=== PATIENT | female | born 2000 | race Hispanic/Latino ===

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

== ENCOUNTER 2018-02-18 21:58 | Emergency (ER) | payer SELFPAY ==
[~2018-02-18] VITALS: Ht 154.9 cm; Wt 99.8 kg
--- OUTSIDE RECORDS SUMMARY | 2018-02-18 22:03 | XMS REPORT | Summary of Care ---
Author Author [facility] Organization [facility] Address Unknown Phone Unavailable Encounter JACINTO Ervin(LUDA) [id number] Date(s): 12/26/15 - 12/26/15 [facility] [address] [place] [address]- Discharge Diagnosis: Lightheadedness Discharge Disposition: Home or Self Care Attending Physician: Tre Taylor DO Vital Signs Most recent to 1 2 oldest [Reference Range]: Height 154.94 cm (12/26/15 3:28 PM) Temperature Oral 98.1 DegF 98.1 DegF [96.8-99.7 DegF] (12/26/15 6:26 PM) (12/26/15 3:28 PM) Blood Pressure 128/73 mmHg 126/82 mmHg [90-138/45-84 mmHg] (12/26/15 6:26 PM) (12/26/15 3:28 PM) Respiratory Rate 20 BRMIN 18 BRMIN [14-20 BRMIN] (12/26/15 6:26 PM) (12/26/15 3:28 PM) Peripheral Pulse 100 bpm 117 bpm Rate [55-90 bpm] *HI* *HI* (12/26/15 6:26 PM) (12/26/15 3:28 PM) Weight 97.727 kg (12/26/15 3:28 PM) Body Mass Index 40.71 m2 (12/26/15 3:28 PM) Problem List Condition Effective Dates Status Health Status Informant Kidney Resolved stone(Confirmed) (Confirmed) 12/18/15 Active Allergies, Adverse Reactions, Alerts Substance Reaction Severity Status NKDA Active Medications Macrobid 100 mg oral capsule 100 mg=1 cap, PO, BID, X 7 day, # 14 cap, 0 Refill(s) Start Date: 12/26/15 Stop Date: 01/02/16 Status: Ordered Phenergan 12.5 mg oral tablet 12.5 mg=1 tab, PO, Q6H, PRN Nausea & Vomiting, X 5 day, # 20 tab, 0 Refill(s) Start Date: 12/26/15 Stop Date: 12/31/15 Status: Ordered Sodium Chloride 0.9% (Bolus) IV 500 mL, 500 ml/hr, Infuse Over: 1 hr, Route: IV, 500, Drug form: INJ, ONCE, Prio rity: STAT, Dosing Weight 97.727 kg, Start date: 12/26/15 15:31:00 CDT, Duration : 1 doses or times, Stop date: 12/26/15 15:31:00 CDT Start Date: 12/26/15 Stop Date: 12/26/15 Status: Completed Results ELECTROLYTES Most recent to 1 oldest [Reference Range]: Sodium Lvl [135-145 139 mEq/L mEq/L] (12/26/15 3:35 PM) Potassium Lvl 3.2 mEq/L [3.5-5.1 mEq/L] *LOW* (12/26/15 3:35 PM) Chloride Lvl [95-109 106 mEq/L mEq/L] (12/26/15 3:35 PM) CO2 [24-32 mEq/L] 26 mEq/L (12/26/15 3:35 PM) AGAP [10.0-20.0 10.2 mEq/L mEq/L] (12/26/15 3:35 PM) CHEM PANEL Most recent to 1 oldest [Reference Range]: Creatinine Lvl 0.57 mg/dL [0.50-1.40 mg/dL] (12/26/15 3:35 PM) eGFR 111 mL/min/1.73m2 1 *NA* (12/26/15 3:35 PM) BUN [7-22 mg/dL] 7 mg/dL (12/26/15 3:35 PM) B/C Ratio [6-25] 12 (12/26/15 3:35 PM) Glucose Lvl [70-99 111 mg/dL mg/dL] *HI* (12/26/15 3:35 PM) Total Protein 6.9 g/dL [6.4-8.4 g/dL] (12/26/15 3:35 PM) Albumin Lvl [3.5-5.0 2.5 g/dL g/dL] *LOW* (12/26/15 3:35 PM) Globulin [2.7-4.2 4.4 g/dL g/dL] *HI* (12/26/15 3:35 PM) A/G Ratio [0.7-1.6] 0.6 *LOW* (12/26/15 3:35 PM) Calcium Lvl 8.8 mg/dL [8.5-10.5 mg/dL] (12/26/15 3:35 PM) ALT [0-65 unit/L] 18 unit/L (12/26/15 3:35 PM) AST [0-37 unit/L] 10 unit/L (12/26/15 3:35 PM) Alk Phos [39-136 110 unit/L unit/L] (12/26/15 3:35 PM) Bili Total [0.2-1.3 0.1 mg/dL mg/dL] *LOW* (12/26/15 3:35 PM) 1Result Comment: The eGFR is calculated using the modified Chairez equation 0.413 x Height (cm) /Serum Creatinine (mg/dL). URINE CHEM Most recent to 1 oldest [Reference Range]: U Preg [Negative] Positive *ABN* (12/26/15 5:01 PM) URINE AND STOOL Most recent to 1 oldest [Reference Range]: UA Turbidity [Clear] Clear (12/26/15 5:01 PM) UA Color Ltyellow *NA* (12/26/15 5:01 PM) UA pH [5.0-8.0] 7.0 (12/26/15 5:01 PM) UA Spec Grav 1.014 [<=1.030] (12/26/15 5:01 PM) UA Glucose [Negative Negative mg/dL mg/dL] *NA* (12/26/15 5:01 PM) UA Blood [Negative] Negative (12/26/15 5:01 PM) UA Ketones [Negative Negative mg/dL mg/dL] *NA* (12/26/15 5:01 PM) UA Protein [Negative Negative mg/dL mg/dL] (12/26/15 5:01 PM) UA Urobilinogen <=1.0 mg/dL [0.1-1.0 mg/dL] *NA* (12/26/15 5:01 PM) UA Bili [Negative] Negative *NA* (12/26/15 5:01 PM) UA Leuk Est Large [Negative] *ABN* (12/26/15 5:01 PM) UA Nitrite Negative [Negative] (12/26/15 5:01 PM) UA WBC [0-5 /HPF] 4 /HPF (12/26/15 5:01 PM) UA RBC [0-2 /HPF] 1 /HPF (12/26/15 5:01 PM) UA Bacteria [None Occasional /HPF Seen /HPF] *NA* (12/26/15 5:01 PM) UA Sq Epi [Few /LPF] Occasional /LPF *NA* (12/26/15 5:01 PM) UA Mucus [None Seen Few /LPF /LPF] *NA* (12/26/15 5:01 PM) UA Trans Epi [<=0 2 /LPF /LPF] *HI* (12/26/15 5:01 PM) HEMATOLOGY Most recent to 1 oldest [Reference Range]: WBC [3.7-10.4 K/CMM] 6.7 K/CMM (12/26/15 3:35 PM) RBC [4.20-5.40 3.87 M/CMM M/CMM] *LOW* (12/26/15 3:35 PM) Hgb [12.0-16.0 g/dL] 11.2 g/dL *LOW* (12/26/15 3:35 PM) Hct [36.0-48.0 %] 33.5 % *LOW* (12/26/15 3:35 PM) MCV [80.0-98.0 fL] 86.7 fL (12/26/15 3:35 PM) MCH [27.0-31.0 pg] 29.0 pg (12/26/15 3:35 PM) MCHC [32.0-36.0 33.5 g/dL g/dL] (12/26/15 3:35 PM) RDW [11.5-14.5 %] 14.8 % *HI* (12/26/15 3:35 PM) Platelet [133-450 155 K/CMM K/CMM] (12/26/15 3:35 PM) MPV [7.4-10.4 fL] 8.0 fL (12/26/15 3:35 PM) Segs [45.0-75.0 %] 76.8 % *HI* (12/26/15 3:35 PM) Lymphocytes 16.4 % [20.0-40.0 %] *LOW* (12/26/15 3:35 PM) Monocytes [2.0-12.0 5.2 % %] (12/26/15 3:35 PM) Eosinophils [0.0-4.0 1.4 % %] (12/26/15 3:35 PM) Basophils [0.0-1.0 0.2 % %] (12/26/15 3:35 PM) Segs-Bands # 5.2 K/CMM [1.5-8.1 K/CMM] (12/26/15 3:35 PM) Lymphocytes # 1.1 K/CMM [1.0-5.5 K/CMM] (12/26/15 3:35 PM) Monocytes # [0.0-0.8 0.4 K/CMM K/CMM] (12/26/15 3:35 PM) Eosinophils # 0.1 K/CMM [0.0-0.5 K/CMM] (12/26/15 3:35 PM) Immunizations No data available for this section Procedures No data available for this section Social History Social History Type Response Smoking Status Never smoker; Exposure to Tobacco Smoke None; Cigarette Smoking Last 365 Days No; Reg Smoking Cessation Counseling No Assessment and Plan No data available for this section
--- OUTSIDE RECORDS SUMMARY | 2018-02-18 22:03 | XMS REPORT | Summary of Care ---
Author Author [facility] Organization [facility] Address Unknown Phone Unavailable Encounter JACINTO Ervin(LUDA) [id number] Date(s): 03/07/16 - 03/07/16 [facility] [address] [place] [address]- Discharge Diagnosis: Discharge Diagnosis: Acute lower UTI Discharge Disposition: Home or Self Care Attending Physician: Pat Zimmerman MD Vital Signs Most recent to 1 2 oldest [Reference Range]: Height 154.94 cm 154.94 cm (03/07/16 7:10 PM) (03/07/16 7:09 PM) Temperature Oral 98.4 DegF [96.4-99.1 DegF] (03/07/16 7:10 PM) Blood Pressure 137/73 mmHg [90-140/60-90 mmHg] (03/07/16 7:10 PM) Respiratory Rate 20 BRMIN [14-20 BRMIN] (03/07/16 7:10 PM) Peripheral Pulse 81 bpm Rate [60-100 bpm] (03/07/16 7:10 PM) Weight 107.727 kg 107.727 kg (03/07/16 7:10 PM) (03/07/16 7:09 PM) Body Mass Index 44.87 m2 44.87 m2 (03/07/16 7:10 PM) (03/07/16 7:09 PM) Problem List Condition Effective Dates Status Health Status Informant Kidney Resolved stone(Confirmed) (Confirmed) 12/18/15 Active Allergies, Adverse Reactions, Alerts Substance Reaction Severity Status NKDA Active Medications Macrobid 100 mg oral capsule 100 mg=1 cap, PO, BID, X 7 day, # 14 cap, 0 Refill(s) Start Date: 03/07/16 Stop Date: 03/14/16 Status: Ordered Rocephin 1 gm, Route: IM, Drug form: PDR/INJ, ONCE, Dosing Weight 107.727, kg, Priority: STAT, Start date: 03/07/16 20:45:00 GAS TENDER, Stop date: 03/07/16 20:45:00 GAS TENDER Notes: (Same As: Rocephin).Use with 100 mL NS and infuse over 30 min MEDICA TION WASTE Product Size: 1000 mgProduct Wasted: ___ mg Start Date: 03/07/16 Stop Date: 03/07/16 Status: Completed Results URINE AND STOOL Most recent to 1 oldest [Reference Range]: UA Turbidity [Clear] Slight *ABN* (03/07/16 7:18 PM) UA Color Ltyellow *NA* (03/07/16 7:18 PM) UA pH [5.0-8.0] 7.0 (03/07/16 7:18 PM) UA Spec Grav 1.012 [<=1.030] (03/07/16 7:18 PM) UA Glucose [Negative Negative mg/dL mg/dL] *NA* (03/07/16 7:18 PM) UA Blood [Negative] Moderate *ABN* (03/07/16 7:18 PM) UA Ketones [Negative Negative mg/dL mg/dL] *NA* (03/07/16 7:18 PM) UA Protein [Negative Negative mg/dL mg/dL] (03/07/16 7:18 PM) UA Urobilinogen <=1.0 mg/dL [0.1-1.0 mg/dL] *NA* (03/07/16 7:18 PM) UA Bili [Negative] Negative *NA* (03/07/16 7:18 PM) UA Leuk Est Large [Negative] *ABN* (03/07/16 7:18 PM) UA Nitrite Negative [Negative] (03/07/16 7:18 PM) UA WBC [0-5 /HPF] 16 /HPF *HI* (03/07/16 7:18 PM) UA RBC [0-2 /HPF] 19 /HPF *HI* (03/07/16 7:18 PM) UA Bacteria [None Occasional /HPF Seen /HPF] *NA* (03/07/16 7:18 PM) UA Sq Epi [Few /LPF] Few /LPF *NA* (03/07/16 7:18 PM) UA Amorph Nanci [None Occasional /HPF Seen /HPF] *NA* (03/07/16 7:18 PM) UA Mucus [None Seen Few /LPF /LPF] *NA* (03/07/16 7:18 PM) Immunizations No data available for this section Procedures Procedure Date Related Diagnosis Body Site Stent placement1 2012 Lithotripsy 1kidney stent placed for stones Social History Social History Type Response Substance Abuse 1 Alcohol 2 Smoking Status Never smoker; Exposure to Tobacco Smoke None; Cigarette Smoking Last 365 Days No; Reg Smoking Cessation Counseling No 1denies 2denies Assessment and Plan No data available for this section
--- OUTSIDE RECORDS SUMMARY | 2018-02-18 22:03 | XMS REPORT | Continuity of Care Document ---
Author Author Kavon rachel [facility] Interface Address Unknown Phone Unavailable Problems Problem Status Onset Date Classification Date Reported Comments Source Discharge Diagnosis: 03/07/2016 03/10/2016 [facility] Discharge Diagnosis: Acute lower UTI 03/07/2016 03/10/2016 [facility] ABDOMINAL PAIN Active 03/07/2016 [facility] Discharge Diagnosis: Labor, false , antepartum 02/13/2016 02/16/2016 [facility] Discharge Diagnosis: Acute vaginitis 02/13/2016 02/16/2016 [facility] BACK PAIN Active 02/13/2016 [facility] Discharge Diagnosis: Lightheadedness 12/26/2015 12/29/2015 [facility] S.O.B Active 12/26/2015 [facility] Discharge Diagnosis: Acute cystitis during in second trimester 12/18/2015 12/21/2015 [facility] Discharge Diagnosis: 26 weeks gestation of 12/18/2015 12/21/2015 [facility] Resolved 12/18/2015 Problem 03/20/2016 [facility] PRESSURE Active 12/18/2015 [facility] Active 06/05/2015 [facility] INDUCTION Active 06/05/2015 [facility] SHORTNESS OF BREATH Active 05/08/2013 [facility] Kidney stone Resolved Problem 03/20/2016 [facility] FAILED INDUCTION OF LABOR, UNSPECIFIED Active [facility] Medications Medication Details Route Status Patient Instructions Ordering Provider Order Date Source Acetaminophen 300 MG / Codeine Phosphate 30 MG Oral Tablet [Tylenol with Codeine #3] 1 tab, PO, Q4H, PRN Pain, X 7 day, # 42 tab, 0 Refill(s) Active 03/16/2016 [facility] Multivitamins oral tablet 1 tab, Route: PO, Drug Form: TAB, Dosing Weight 109.091, kg, Daily, Start date: 03/16/16 9:00:00 [employer] SERVICES TECH, Duration: 30 day, Stop date: 04/14/16 9:00:00 BUSINESS SERVICES TECH No Longer Active 03/16/2016 [facility] Unasyn 1.5 gm, 1 ea, Route: IVPB, ABXQ8H, Dosing Weight 109.091, kg, Start date: 03/16/16 1:00:00 BUSINESS SERVICES TECH, Duration: 2 doses or times, Stop date: 03/16/16 9:00:00 CSTNotes: Dosing based on Ampicillin component (Same as: Unasyn) Inactive 03/16/2016 [facility] Ibuprofen 600 mg, 1 tab, Route: PO, Drug form: TAB, Q6H, Dosing Weight 109.091, kg, Start date: 03/16/16 0:00:00 BUSINESS SERVICES TECH, Duration: 30 day, Stop date: 04/14/16 18:00:00 CSTNotes: (Same as: Motrin) "Do Not Crush" Take with food. No Longer Active 03/16/2016 [facility] Tylenol 1,000 mg, 100 mL, Route: IVPB, Drug form: INJ, Q6H, Dosing Weight 109.091, kg, Start date: 03/16/16 0:00:00 BUSINESS SERVICES TECH, Duration: 30 day, Stop date: 04/14/16 18:00:00 CSTNotes: Infuse over 15 minutes Do not e xceed 4gm/day of acetaminophen MEDICATION WASTE Product Size: 1000 mg Product Wasted: ___ mg Inactive 03/16/2016 [facility] Lactated Ringers 1,000 mL 1,000 mL, Rate: 100 ml/hr, Infuse over: 10 hr, Route: IV, Dosing Weight 109.091 kg, Total Volume: 1,000, Start date: 03/15/16 22:58:00 BUSINESS SERVICES TECH, Duration: 30 day, Stop date: 04/14/16 22:57:00 BUSINESS SERVICES TECH No Longer Active 03/16/2016 [facility] Oxytocin 0.06 UNT/ML Injectable Solution 30 unit, 500 mL, Rate: 42 ml/hr, Infuse over: 11.9 hr, Dosing Weight 109.091, kg, Route: IV, Total Volume: 500 mL, Start date: 03/15/16 22:58:00 BUSINESS SERVICES TECH, Duration: 1 doses or times, Stop date: 03/16/16 10:51:00 BUSINESS SERVICES TECH, Replace Every: 11.9 hrNotes: (Same as: OXYTOCIN-D5LR) No Longer Active 03/16/2016 [facility] lanolin topical cream 1 appl, Route: TOP, PRN, Drug form: CRM, PRN Other -See Comment, Start date: 03/15/16 22:58:00 BUSINESS SERVICES TECH, Duration: 30 day, Stop date: 04/14/16 22:57:00 BUSINESS SERVICES TECH No Longer Active 03/16/2016 [facility] Bisacodyl 10 mg, 1 supp, Route: VA, Drug form: SUPP, PRN, Dosing Weight 109.091, kg, PRN Other -See Comment, Start date: 03/15/16 22:58:00 BUSINESS SERVICES TECH, Duration: 30 day, Stop date: 04/14/16 22:57:00 CSTNotes: (Same As: Dulcolax, Bisco-Lax) No Longer Active 03/16/2016 [facility] Acetaminophen 325 MG / Hydrocodone Bitartrate 5 MG Oral Tablet 1 tab, Route: PO, Drug Form: TAB, Dosing Weight 109.091, kg, Q4H, PRN Pain Score 4-6, Start date: 03/15/16 22:58:00 BUSINESS SERVICES TECH, Duration: 30 day, Stop date: 04/14/16 22:57:00 CSTNotes: (Same as: [place] 325/5) Do not exceed 4gm/day of acetaminophen. No Longer Active 03/16/2016 [facility] Acetaminophen 325 MG / Hydrocodone Bitartrate 10 MG Oral Tablet 1 tab, Route: PO, Drug Form: TAB, Dosing Weight 109.091, kg, Q4H, PRN Pain Score 7-10, Start date: 03/15/16 22:58:00 BUSINESS SERVICES TECH, Duration: 30 day, Stop date: 04/14/16 22:57:00 CSTNotes: Do not exceed 4gm/day of acetaminophen. (Same as: [place] 325/10) No Longer Active 03/16/2016 [facility] zolpidem 5 mg, 1 tab, Route: PO, Drug form: TAB, Bedtime, Dosing Weight 109.091, kg, PRN Insomnia, Start date: 03/15/16 22:58:00 BUSINESS SERVICES TECH, Duration: 30 day, Stop date: 04/14/16 22:57:00 CSTNotes: (Same As: Ambien) No Longer Active 03/16/2016 [facility] Benzocaine / Menthol 1 lozenge, Route: PO, Drug Form: ROEL, Dosing Weight 109.091, kg, PRN, PRN Sore Throat, Start date: 03/15/16 22:58:00 BUSINESS SERVICES TECH, Duration: 30 day, Stop date: 04/14/16 22:57:00 CSTNotes: Same as: Cepacol No Longer Active 03/16/2016 [facility] Acetaminophen 650 mg, 2 tab, Route: PO, Drug form: TAB, Q4H, Dosing Weight 109.091, kg, PRN Other -See Comment, Start date: 03/15/16 22:58:00 BUSINESS SERVICES TECH, Duration: 30 day, Stop date: 04/14/16 22:57:00 CSTNotes: Do not ex ceed 4 gm/day. (Same as: Tylenol) No Longer Active 03/16/2016 [facility] Simethicone 160 mg, 2 tab, Route: PO, Drug form: CHE[place]AB, Q8H, Dosing Weight 109.091, kg, PRN Gas, Start date: 03/15/16 22:58:00 BUSINESS SERVICES TECH, Duration: 30 day, Stop date: 04/14/16 22:57:00 CSTNotes: (Same as: Mylicon) No Longer Active 03/16/2016 [facility] Naloxone 0.4 mg, 1 mL, Route: IVP, Drug form: INJ, ONCALL, Dosing Weight 109.091, kg, Start date: 03/15/16 20:00:00 BUSINESS SERVICES TECH, Duration: 24 hr, Stop date: 03/16/16 19:59:00 CSTNotes: Same as Narcan No Longer Active 03/16/2016 [facility] Hydrocodone Bitartrate 7.5 MG / Ibuprofen 200 MG Oral Tablet [Vicoprofen] 1 tab, Route: PO, Drug Form: TAB, Dosing Weight 109.091, kg, Q6H, PRN Pain Score 7-10, Start date: 03/15/16 19:14:00 BUSINESS SERVICES TECH, Duration: 24 hr, Stop date: 03/16/16 19:13:00 CSTNotes: (Same as: Vicoprofen) No Longer Active 03/16/2016 [facility] Ondansetron 4 mg, 2 mL, Route: IVP, Drug form: INJ, Q6H, Dosing Weight 109.091, kg, PRN Nausea & Vomiting, Start date: 03/15/16 19:14:00 BUSINESS SERVICES TECH, Duration: 24 hr, Stop date: 03/16/16 19:13:00 CSTNotes: (Same as: Zofran) MEDICATION WASTE Product Size: 4 mg Product Wasted: ___ mg No Longer Active 03/16/2016 [facility] Hydromorphone 0.3 mg, 0.3 mL, Route: IVP, Drug form: INJ, Q4H, Dosing Weight 109.091, kg, PRN Pain Score 7-10, Start date: 03/15/16 19:14:00 BUSINESS SERVICES TECH, Duration: 30 day, Stop date: 04/14/16 19:13:00 BUSINESS SERVICES TECH No Longer Active 03/16/2016 [facility] Naloxone 0.1 mg, 0.25 mL, Route: SUB-Q, Drug form: INJ, Q6H, Dosing Weight 109.091, kg, PRN Itching, Start date: 03/15/16 19:14:00 BUSINESS SERVICES TECH, Duration: 24 hr, Stop date: 03/16/16 19:13:00 CSTNotes: Same as Narcan No Longer Active 03/16/2016 [facility] Diphenhydramine 12.5 mg, 0.5 tab, Route: PO, Drug form: TAB, Q6H, Dosing Weight 109.091, kg, PRN Itching, Start date: 03/15/16 19:14:00 BUSINESS SERVICES TECH, Duration: 30 day, Stop date: 04/14/16 19:13:00 BUSINESS SERVICES TECH No Longer Active 03/16/2016 [facility] Promethazine 6.25 mg, 0.25 mL, Route: IVPB, Q6H, Dosing Weight 109.091, kg, PRN Nausea & Vomiting, Start date: 03/15/16 19:14:00 BUSINESS SERVICES TECH, Duration: 24 hr, Stop date: 03/16/16 19:13:00 CSTNotes: Do not give IV push. (Same as: Phenergan) No Longer Active 03/16/2016 [facility] Meperidine 12.5 mg, 0.25 mL, Route: IVP, Drug form: INJ, ONCE, Dosing Weight 109.091, kg, Start date: 03/15/16 19:14:00 BUSINESS SERVICES TECH, Stop date: 03/15/16 19:14:00 CSTNotes: (Same as: Demerol) "Use Precaution in Elderly, Seizure disorders, and Renal impairment" No Longer Active 03/16/2016 [facility] Nalbuphine 2 mg, 0.2 mL, Route: IVP, Drug form: INJ, Q2H, Dosing Weight 109.091, kg, PRN Itching, Start date: 03/15/16 19:14:00 BUSINESS SERVICES TECH, Duration: 5 doses or times, Stop date: Limited # of timesNotes: (Same As: Smita somers) No Longer Active 03/16/2016 [facility] Oxycodone Hydrochloride 1 MG/ML Oral Solution 5 mg, 5 mL, Route: NG, Drug form: LIQ, Q4H, Dosing Weight 109.091, kg, PRN Pain Score 4-6, Start date: 03/15/16 19:14:00 BUSINESS SERVICES TECH, Stop date: 04/14/16 19:13:00 CSTNotes: (Same as: 'Roxicodone) No Longer Active 03/16/2016 [facility] Oxycodone Hydrochloride 5 MG Oral Tablet 5 mg, 1 tab, Route: PO, Drug form: TAB, Q4H, Dosing Weight 109.091, kg, PRN Pain Score 4-6, Start date: 03/15/16 19:14:00 BUSINESS SERVICES TECH, Duration: 30 day, Stop date: 04/14/16 19:13:00 CSTNotes: (Same as: Roxicodone) No Longer Active 03/16/2016 [facility] Acetaminophen 1,000 mg, 2 tab, Route: PO, Drug form: TAB, Q6Hnow, Dosing Weight 109.091, kg, Priority: NOW, Start date: 03/15/16 19:14:00 BUSINESS SERVICES TECH, Duration: 24 hr, Stop date: 03/16/16 13:14:00 CSTNotes: Max acetaminophen 4000 mg/day (4 gm/day). (Same as: Tylenol Extra Strength) Inactive 03/16/2016 [facility] Ketorolac 30 mg, 1 mL, Route: IVP, Drug form: INJ, Q6H, Dosing Weight 109.091, kg, PRN Pain Score 4-6, Start date: 03/15/16 19:14:00 BUSINESS SERVICES TECH, Duration: 24 hr, Stop date: 03/16/16 19:13:00 CSTNotes: (Same as:Toradol) IV bolus must be given >15 seconds. Give IM administration slowly and deeply into the muscle. Not for use > 4 days MEDICATION WASTE Product Size: 30 mg Product Wasted: ___ mg No Longer Active 03/16/2016 [facility] ondansetron (ANES) Route: IV, Drug form: INJ, ONCE, Stop date: 03/15/16 17:45:00 BUSINESS SERVICES TECH Inactive 03/15/2016 [facility] hydromorphone (ANES) Route: EPIDURAL, Drug form: INJ, ONCE, Stop date: 03/15/16 17:45:00 BUSINESS SERVICES TECH Inactive 03/15/2016 [facility] ceFAZolin (ANES) Route: IV, Drug form: INJ, ONCE, Stop date: 03/15/16 17:36:00 BUSINESS SERVICES TECH Inactive 03/15/2016 [facility] oxytocin (ANES) (ANES) Route: IV, Drug form: SOLN, Start date: 03/15/16 17:12:00 BUSINESS SERVICES TECH, Stop date: 03/15/16 18:12:00 BUSINESS SERVICES TECH Inactive 03/15/2016 [facility] LR 1000 mL INJ (ANES) Route: IV, Total Volume: 1,000, Start date: 03/15/16 16:52:00 BUSINESS SERVICES TECH, Stop date: 03/15/16 17:52:00 BUSINESS SERVICES TECH Inactive 03/15/2016 [facility] Cefazolin 3 gm, Route: IVPB, ONCE, Dosing Weight 109.091, kg, Start date: 03/15/16 16:19:00 BUSINESS SERVICES TECH, Duration: 1 doses or times, Stop date: 03/15/16 16:19:00 BUSINESS SERVICES TECH, 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; For patients > 100 kgNotes: (Same As: AncYevgeniy tsaizochanell) MEDICATION WASTE Product Size: 1000 mg Product Wasted: ___ mg Inactive 03/15/2016 [facility] Morphine 2 mg, 1 mL, Route: IVP, Drug form: INJ, Q2H, Dosing Weight 109.091, kg, PRN Pain Score 7-10, Start date: 03/15/16 16:18:00 BUSINESS SERVICES TECH, Duration: 30 day, Stop date: 04/14/16 16:17:00 CSTNotes: (Same as:MORPhine Sulfate) No Longer Active 03/15/2016 [facility] Ondansetron 4 mg, Route: IVP, Q8H, Dosing Weight 109.091, kg, PRN Nausea & Vomiting, Start date: 03/15/16 16:18:00 BUSINESS SERVICES TECH, Duration: 30 day, Stop date: 04/14/16 16:17:00 BUSINESS SERVICES TECH Inactive 03/15/2016 [facility] Metoclopramide 10 mg, Route: IVP, Drug form: INJ, Q6H, Dosing Weight 109.091, kg, PRN Nausea & Vomiting, Start date: 03/15/16 16:18:00 BUSINESS SERVICES TECH, Duration: 30 day, Stop date: 04/14/16 16:17:00 BUSINESS SERVICES TECH Inactive 03/15/2016 [facility] Promethazine 12.5 mg, 0.5 mL, Route: IM, Drug form: INJ, Q4H, Dosing Weight 109.091, kg, PRN Nausea & Vomiting, Start date: 03/15/16 16:18:00 BUSINESS SERVICES TECH, Duration: 30 day, Stop date: 04/14/16 16:17:00 CSTNotes: Do not g nayan IV push. (Same as: Phenergan) No Longer Active 03/15/2016 [facility] Misoprostol 1,000 microgram, 5 tab, Route: VA, Drug form: TAB, ONCALL, Dosing Weight 109.091, kg, Start date: 03/15/16 4:00:00 BUSINESS SERVICES TECH, Duration: 1 doses or timesNotes: (Same as:Cytotec) Take with food Inactive 03/15/2016 [facility] Methylergonovine 0.2 mg, 1 mL, Route: IM, Drug form: INJ, ONCALL, Dosing Weight 109.091, kg, Start date: 03/15/16 4:00:00 BUSINESS SERVICES TECH, Duration: 30 day, Stop date: 04/14/16 3:59:00 CSTNotes: (Same as:Methergine) Inactive 03/15/2016 [facility] Carboprost 250 microgram, 1 mL, Route: IM, Drug form: INJ, ONCALL, Dosing Weight 109.091, kg, Start date: 03/15/16 4:00:00 BUSINESS SERVICES TECH, Duration: 30 day, Stop date: 04/14/16 3:59:00 CSTNotes: (Same As: Hemabate) Inactive 03/15/2016 [facility] Citric Acid / sodium citrate 30 mL, Route: PO, Drug Form: SOLN, Dosing Weight 109.091, kg, ONCALL, Start date: 03/15/16 4:00:00 BUSINESS SERVICES TECH, Duration: 30 day, Stop date: 04/14/16 3:59:00 CSTNotes: (Same As: Bicitra) Inactive 03/15/2016 [facility] Famotidine 20 mg, 2 mL, Route: IVP, Drug form: INJ, ONCALL, Dosing Weight 109.091, kg, Start date: 03/15/16 4:00:00 BUSINESS SERVICES TECH, Duration: 30 day, Stop date: 04/14/16 3:59:00 CSTNotes: (Same as: Pepcid) Can be dilute in 5-10cc NS IVP: Slow IV push over at least 2 minutes. 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 OPERATOR AREA (Same As: Brethine) Inactive 03/15/2016 [facility] Lidocaine Hydrochloride 10 MG/ML Injectable Solution 200 mg, 20 mL, Route: PERCUT, Drug Form: INJ, Dosing Weight 109.091, kg, PRN, PRN Other -See Comment, Start date: 03/15/16 3:41:00 BUSINESS SERVICES TECH, Duration: 1 doses or times, Stop date: Limited # of timesNotes: (Same as: Xylocaine) Inactive 03/15/2016 [facility] Ibuprofen 600 mg, 1 tab, Route: PO, Drug form: TAB, Q6H, Dosing Weight 109.091, kg, PRN Other -See Comment, Start date: 03/15/16 3:41:00 BUSINESS SERVICES TECH, Duration: 30 day, Stop date: 04/14/16 3:40:00 CSTNotes: (Same as: Motrin) "Do Not Crush" Take with food. Inactive 03/15/2016 [facility] Acetaminophen 325 MG / Hydrocodone Bitartrate 5 MG Oral Tablet 1 tab, Route: PO, Drug Form: TAB, Dosing Weight 109.091, kg, Q4H, PRN Pain Score 4-6, Start date: 03/15/16 3:41:00 BUSINESS SERVICES TECH, Duration: 30 day, Stop date: 04/14/16 3:40:00 CSTNotes: (Same as: [place] 325/5) Do not exceed 4gm/day of acetaminophen. Inactive 03/15/2016 [facility] Metoclopramide 10 mg, 2 mL, Route: IVP, Drug form: INJ, Q6H, Dosing Weight 109.091, kg, PRN Nausea & Vomiting, Start date: 03/15/16 3:41:00 BUSINESS SERVICES TECH, Duration: 30 day, Stop date: 04/14/16 3:40:00 CSTNotes: (Same as: Reglan) Inactive 03/15/2016 [facility] Ondansetron 4 mg, 2 mL, Route: IVP, Drug form: INJ, Q8H, Dosing Weight 109.091, kg, PRN Nausea & Vomiting, Start date: 03/15/16 3:41:00 BUSINESS SERVICES TECH, Duration: 30 day, Stop date: 04/14/16 3:40:00 CSTNotes: (Same as: Zofran) MEDICATION WASTE Product Size: 4 mg Product Wasted: ___ mg Inactive 03/15/2016 [facility] Oxytocin 0.06 UNT/ML Injectable Solution 30 unit, 500 mL, Rate: 42 ml/hr, Infuse over: 11.9 hr, Dosing Weight 109.091, kg, Route: IV, Total Volume: 500 mL, Start date: 03/15/16 3:41:00 BUSINESS SERVICES TECH, Duration: 2 day, Stop date: 03/17/16 3:40:00 BUSINESS SERVICES TECH, Replace Every: 11.9 hrNotes: (Same as: OXYTOCIN- D5LR) Inactive 03/15/2016 [facility] Calcium Chloride 0.0014 MEQ/ML / Potassium Chloride 0.004 MEQ/ML / Sodium Chloride 0.103 MEQ/ML / Sodium Lactate 0.028 MEQ/ML Injectable Solution 1,000 mL, 1,000 ml/hr, Infuse Over: 1 hr, Route: IV, 1,000, Drug form: INJ, ONCE, Dosing Weight 109.091 kg, Start date: 03/15/16 3:41:00 BUSINESS SERVICES TECH, Stop date: 03/15/16 3:41:00 BUSINESS SERVICES TECH, Bolus for regional anesthesia per unit protocol Inactive 03/15/2016 [facility] Lactated Ringers 1,000 mL 1,000 mL, Rate: 125 ml/hr, Infuse over: 8 hr, Route: IV, Dosing Weight 109.091 kg, Total Volume: 1,000, Start date: 03/15/16 3:41:00 BUSINESS SERVICES TECH, Duration: 30 day, Stop date: 04/14/16 3:40:00 BUSINESS SERVICES TECH Inactive 03/15/2016 [facility] Nitrofurantoin 100 MG Oral Capsule [Macrobid] 100 mg=1 cap, PO, BID, X 7 day, # 14 cap, 0 Refill(s) Active 03/08/2016 [facility] Rocephin 1 gm, Route: IM, Drug form: PDR/INJ, ONCE, Dosing Weight 107.727, kg, Priority: STAT, Start date: 03/07/16 20:45:00 BUSINESS SERVICES TECH, Stop date: 03/07/16 20:45:00 CSTNotes: (Same As: Rocephin). Use with 100 mL NS and infuse over 30 min MEDICATION WASTE Product Size: 1000 mg Product Wasted: ___ mg Inactive 03/08/2016 [facility] Metronidazole 0.0075 MG/MG Vaginal Gel [MetroGel] 1 appl, VAG, Bedtime, X 5 day, # 1 ea, 0 Refill(s) Active 02/14/2016 [facility] Lactated Ringers 1,000 mL 1,000 mL, Rate: 125 ml/hr, Infuse over: 8 hr, Route: IV, Dosing Weight 104.091 kg, Total Volume: 1,000, Start date: 02/13/16 20:10:00 CDT, Duration: 30 day, Stop date: 03/14/16 20:09:00 BUSINESS SERVICES TECH No Longer Active 02/14/2016 [facility] Calcium Chloride 0.0014 MEQ/ML / Potassium Chloride 0.004 MEQ/ML / Sodium Chloride 0.103 MEQ/ML / Sodium Lactate 0.028 MEQ/ML Injectable Solution 1,000 mL, 1,000 ml/hr, Infuse Over: 1 hr, Route: IV, ONCE, Priority: STAT, Dosing Weight 104.091 kg, Start date: 02/13/16 20:10:00 CDT, Duration: 1 doses or times, Stop date: 02/13/16 20:10:00 CDT Inactive 02/14/2016 [facility] Phenergan 12.5 mg oral tablet 12.5 mg=1 tab, PO, Q6H, PRN Nausea & Vomiting, X 5 day, # 20 tab, 0 Refill(s) Active 12/26/2015 [facility] Nitrofurantoin 100 MG Oral Capsule [Macrobid] 100 mg=1 cap, PO, BID, X 7 day, # 14 cap, 0 Refill(s) Active 12/26/2015 [facility] Sodium Chloride 0.154 MEQ/ML Injectable Solution 500 mL, 500 ml/hr, Infuse Over: 1 hr, Route: IV, 500, Drug form: INJ, ONCE, Priority: STAT, Dosing Weight 97.727 kg, Start date: 12/26/15 15:31:00 CDT, Duration: 1 doses or times, Stop date: 12/26/15 15:31:00 CDT Inactive 12/26/2015 [facility] Nitrofurantoin 100 MG Oral Capsule [Macrobid] 100 mg=1 cap, PO, BID, X 7 day, # 14 cap, 0 Refill(s) Active 12/18/2015 [facility] 1 Plus 1 oral tablet 1 tab, PO, Daily, # 30 tab, 0 Refill(s) Active 12/18/2015 [facility] famotidine 20 mg oral tablet 20 mg=1 tab, PO, BID, # 30 tab, 0 Refill(s) Active 05/11/2013 [facility] Carafate 1 g/10 mL oral suspension 1 gm=10 ml, PO, QID- Before Meals, # 400 ml, 0 Refill(s) Active [facility] 05/11/2013 [facility] famotidine 20 mg, Route: PO, ONCE, Dosing Weight 90.909, kg, Priority: STAT, Start date: 05/11/13 2:40:00, Stop date: 05/11/13 2:40:00 Inactive [facility] 05/11/2013 [facility] Maalox Advanced Regular Strength SUSP 30 mL, Route: PO, Drug Form: SUSP, Dosing Weight 90.909, kg, ONCE, STAT, Start date: 05/11/13 2:40:00, Stop date: 05/11/13 2:40:00 Inactive [facility] 05/11/2013 [facility] morphine Sulfate 4 mg, Route: IVP, Drug form: INJ, ONCE, Dosing Weight 90.909, kg, Priority: STAT, Start date: 05/11/13 1:41:00, Stop date: 05/11/13 1:41:00 Inactive [facility] 05/11/2013 [facility] famotidine 20 mg, 2 mL, Route: IVP, Drug form: INJ, ONCE, Dosing Weight 90.909, kg, Priority: STAT, Start date: 05/11/13 0:15:00, Stop date: 05/11/13 0:15:00(Same as: Pepcid) Can be dilute in 5-10cc NS IVP: Slow IV push over at least 2 minutes. Inactive 05/11/2013 [facility] ondansetron 4 mg, 2 mL, Route: IVP, Drug form: INJ, ONCE, Dosing Weight 90.909, kg, Priority: STAT, Start date: 05/11/13 0:15:00, Stop date: 05/11/13 0:15:00(Same as: Zofran) Inactive [facility] 05/11/2013 [facility] Saline Flush 0.9% 5 mL, Route: IVP, Drug Form: INJ, Dosing Weight 90.909, kg, PRN, PRN Line Flush, Start date: 05/11/13 0:15:00, Duration: 24 hr, Stop date: 05/12/13 0:14:00(Same as: BD Posiflush) Inactive [facility] 05/11/2013 [facility] Sodium Chloride 0.9% (Bolus) IV 1,000 mL 1,000 mL, Rate: 1,000 ml/hr, Infuse over: 1 hr, Route: IV, Dosing Weight 90.909 kg, Total Volume: 1,000, Priority: STAT, Start date: 05/11/13 0:15:00, Duration: 1 doses or times, Stop date: 05/11/13 1:14:00 Inactive [facility] 05/11/2013 [facility] Allergies, Adverse Reactions, Alerts Substance Category Reaction Severity Reaction type Status Date Reported Comments Source Immunizations Immunization Date Given Site Status Last Updated Comments Source diphtheria/pertussis, acel/tetanus adult 03/16/2016 Not Given [facility] Results Order Name Results Value Reference Range Date Interpretation Comments Source HEMATOLOGY RBC 3.50 M/CMM 4.20 - 5.40 03/17/2016 [facility] HEMATOLOGY Hgb 9.8 g/dL 12.0 - 16.0 03/17/2016 [facility] HEMATOLOGY MPV 8.3 fL 7.4 - 10.4 03/17/2016 [facility] Platelet 155 K/CMM 133 - 450 03/17/2016 [facility] RDW 14.5 % 11.5 - 14.5 03/17/2016 [facility] Hct 29.6 % 36.0 - 48.0 03/17/2016 [facility] WBC 8.8 K/CMM 3.7 - 10.4 03/17/2016 [facility] MCHC 33.1 g/dL 32.0 - 36.0 03/17/2016 [facility] MCV 84.5 fL 80.0 - 98.0 03/17/2016 [facility] MCH 28.0 pg 27.0 - 31.0 03/17/2016 [facility] Segs 74.3 % 45.0 - 75.0 03/17/2016 [facility] Monocytes 5.9 % 2.0 - 12.0 03/17/2016 [facility] Basophils 0.3 % 0.0 - 1.0 03/17/2016 [facility] Segs-Bands # 6.6 K/CMM 1.5 - 8.1 03/17/2016 [facility] Eosinophils 1.2 % 0.0 - 4.0 03/17/2016 [facility] Lymphocytes # 1.6 K/CMM 1.0 - 5.5 03/17/2016 [facility] Lymphocytes 18.3 % 20.0 - 40.0 03/17/2016 [facility] Monocytes # 0.5 K/CMM 0.0 - 0.8 03/17/2016 [facility] Eosinophils # 0.1 K/CMM 0.0 - 0.5 03/17/2016 [facility] HEMATOLOGY MCV 85.0 fL 80.0 - 98.0 03/16/2016 [facility] HEMATOLOGY Hct 26.0 % 36.0 - 48.0 03/16/2016 [facility] MCH 27.8 pg 27.0 - 31.0 03/16/2016 [facility] RDW 14.6 % 11.5 - 14.5 03/16/2016 [facility] MCHC 32.7 g/dL 32.0 - 36.0 03/16/2016 [facility] HEMATOLOGY MPV 8.9 fL 7.4 - 10.4 03/16/2016 [facility] WBC 6.6 K/CMM 3.7 - 10.4 03/16/2016 [facility] Hgb 8.5 g/dL 12.0 - 16.0 03/16/2016 [facility] RBC 3.06 M/CMM 4.20 - 5.40 03/16/2016 [facility] Platelet 90 K/CMM 133 - 450 03/16/2016 [facility] Monocytes # 0.4 K/CMM 0.0 - 0.8 03/16/2016 [facility] HEMATOLOGY Eosinophils # 0.1 K/CMM 0.0 - 0.5 03/16/2016 [facility] HEMATOLOGY Segs 76.9 % 45.0 - 75.0 03/16/2016 [facility] HEMATOLOGY Lymphocytes 15.9 % 20.0 - 40.0 03/16/2016 [facility] Monocytes 6.2 % 2.0 - 12.0 03/16/2016 [facility] HEMATOLOGY Eosinophils 0.8 % 0.0 - 4.0 03/16/2016 [facility] HEMATOLOGY Segs-Bands # 5.1 K/CMM 1.5 - 8.1 03/16/2016 [facility] Basophils 0.2 % 0.0 - 1.0 03/16/2016 [facility] Lymphocytes # 1.0 K/CMM 1.0 - 5.5 03/16/2016 [facility] RBC Morph Normal (03/16/16 7:51 AM) 03/16/2016 [facility] HEMATOLOGY Plt Morph Normal (03/16/16 7:51 AM) 03/16/2016 [facility] BLOOD BANK RESULTS ABO/Rh A POS 03/15/2016 [facility] BLOOD BANK RESULTS Antibody Scrn Negative (03/15/16 4:42 AM) 03/15/2016 [facility] BLOOD BANK RESULTS Rhig Reqd See Note 1 (03/15/16 4:13 AM) 03/15/2016 Result Comment: 03/15/2016 12:07 [id number] This patient is not a candidate for Rh(O)D immune globulin. 03/15/2016 12:07 tb [facility] HEMATOLOGY Hgb 10.7 g/dL 12.0 - 16.0 03/15/2016 [facility] HEMATOLOGY Hct 32.7 % 36.0 - 48.0 03/15/2016 [facility] HEMATOLOGY MCV 84.4 fL 80.0 - 98.0 03/15/2016 [facility] WBC 8.2 K/CMM 3.7 - 10.4 03/15/2016 [facility] RBC 3.87 M/CMM 4.20 - 5.40 03/15/2016 [facility] RDW 14.6 % 11.5 - 14.5 03/15/2016 [facility] MPV 8.6 fL 7.4 - 10.4 03/15/2016 [facility] Platelet 141 K/CMM 133 - 450 03/15/2016 [facility] MCH 27.7 pg 27.0 - 31.0 03/15/2016 [facility] MCHC 32.9 g/dL 32.0 - 36.0 03/15/2016 [facility] Monocytes # 0.4 K/CMM 0.0 - 0.8 03/15/2016 [facility] Eosinophils # 0.1 K/CMM 0.0 - 0.5 03/15/2016 [facility] Monocytes 5.2 % 2.0 - 12.0 03/15/2016 [facility] Lymphocytes 24.5 % 20.0 - 40.0 03/15/2016 [facility] Eosinophils 1.8 % 0.0 - 4.0 03/15/2016 [facility] Segs 67.9 % 45.0 - 75.0 03/15/2016 [facility] Basophils 0.6 % 0.0 - 1.0 03/15/2016 [facility] Lymphocytes # 2.0 K/CMM 1.0 - 5.5 03/15/2016 [facility] HEMATOLOGY Segs-Bands # 5.6 K/CMM 1.5 - 8.1 03/15/2016 [facility] IMMUNOLOGY Hep Bs Ag Negative *NA* (03/15/16 4:13 AM) Negative 03/15/2016 [facility] IMMUNOLOGY HIV. Negative *NA* (03/15/16 4:13 AM) Negative 03/15/2016 [facility] IMMUNOLOGY Treponemal Scr Non Reactive *NA* (03/15/16 4:13 AM) Non Reactive 03/15/2016 [facility] URINE AND STOOL UA WBC 16 /HPF 0 - 5 03/08/2016 [facility] URINE AND STOOL UA RBC 19 /HPF 0 - 2 03/08/2016 [facility] URINE AND STOOL UA Sq Epi Few /LPF Few /LPF 03/08/2016 [facility] URINE AND STOOL UA Urobilinogen <=1.0 mg/dL 0.1 - 1.0 03/08/2016 [facility] URINE AND STOOL UA Bacteria Occasional /HPF None Seen /HPF 03/08/2016 [facility] URINE AND STOOL UA Mucus Few /LPF None Seen /LPF 03/08/2016 [facility] URINE AND STOOL UA Amorph Nanci Occasional /HPF None Seen /HPF 03/08/2016 [facility] URINE AND STOOL UA Color Ltyellow 03/08/2016 [facility] URINE AND STOOL UA Bili Negative *NA* (03/07/16 7:18 PM) Negative 03/08/2016 [facility] URINE AND STOOL UA Ketones Negative mg/dL Negative mg/dL 03/08/2016 [facility] URINE AND STOOL UA Leuk Est Large *ABN* (03/07/16 7:18 PM) Negative 03/08/2016 [facility] URINE AND STOOL UA Blood Moderate *ABN* (03/07/16 7:18 PM) Negative 03/08/2016 [facility] URINE AND STOOL UA Nitrite Negative (03/07/16 7:18 PM) Negative 03/08/2016 [facility] URINE AND STOOL UA Turbidity Slight *ABN* (03/07/16 7:18 PM) Clear 03/08/2016 [facility] URINE AND STOOL UA Spec Grav 1.012 <=1.030 03/08/2016 [facility] URINE AND STOOL UA pH 7.0 5.0 - 8.0 03/08/2016 [facility] URINE AND STOOL UA Protein Negative mg/dL Negative mg/dL 03/08/2016 [facility] URINE AND STOOL UA Glucose Negative mg/dL Negative mg/dL 03/08/2016 [facility] URINE AND STOOL UA Urobilinogen <=1.0 mg/dL 0.1 - 1.0 02/14/2016 [facility] URINE AND STOOL UA Color Ltyellow 02/14/2016 [facility] URINE AND STOOL UA Bacteria Occasional /HPF None Seen /HPF 02/14/2016 [facility] URINE AND STOOL UA Mucus Few /LPF None Seen /LPF 02/14/2016 [facility] URINE AND STOOL UA RBC 2 /HPF 0 - 2 02/14/2016 [facility] URINE AND STOOL UA Amorph Nanci Occasional /HPF None Seen /HPF 02/14/2016 [facility] URINE AND STOOL UA Renal Epi 5 /LPF <=0 /LPF 02/14/2016 [facility] URINE AND STOOL UA Protein Negative mg/dL Negative mg/dL 02/14/2016 [facility] URINE AND STOOL UA pH 7.0 5.0 - 8.0 02/14/2016 [facility] URINE AND STOOL UA Ketones Negative mg/dL Negative mg/dL 02/14/2016 [facility] URINE AND STOOL UA Glucose Negative mg/dL Negative mg/dL 02/14/2016 [facility] URINE AND STOOL UA Nitrite Negative (02/13/16 8:35 PM) Negative 02/14/2016 [facility] URINE AND STOOL UA Blood Negative (02/13/16 8:35 PM) Negative 02/14/2016 [facility] URINE AND STOOL UA Bili Negative *NA* (02/13/16 8:35 PM) Negative 02/14/2016 [facility] URINE AND STOOL UA WBC 4 /HPF 0 - 5 02/14/2016 [facility] URINE AND STOOL UA Sq Epi Few /LPF Few /LPF 02/14/2016 [facility] URINE AND STOOL UA Leuk Est Small *ABN* (02/13/16 8:35 PM) Negative 02/14/2016 [facility] URINE AND STOOL UA Spec Grav 1.014 <=1.030 02/14/2016 [facility] URINE AND STOOL UA Turbidity Slight *ABN* (02/13/16 8:35 PM) Clear 02/14/2016 [facility] URINE AND STOOL UA Urobilinogen <=1.0 mg/dL 0.1 - 1.0 12/26/2015 [facility] URINE AND STOOL UA Color Ltyellow 12/26/2015 [facility] URINE AND STOOL UA Ketones Negative mg/dL Negative mg/dL 12/26/2015 [facility] URINE AND STOOL UA Trans Epi 2 /LPF <=0 /LPF 12/26/2015 [facility] URINE AND STOOL UA Protein Negative mg/dL Negative mg/dL 12/26/2015 [facility] URINE AND STOOL UA pH 7.0 5.0 - 8.0 12/26/2015 [facility] URINE AND STOOL UA Spec Grav 1.014 <=1.030 12/26/2015 [facility] URINE AND STOOL UA Turbidity Clear (12/26/15 5:01 PM) Clear 12/26/2015 [facility] URINE AND STOOL UA Glucose Negative mg/dL Negative mg/dL 12/26/2015 [facility] URINE AND STOOL UA Leuk Est Large *ABN* (12/26/15 5:01 PM) Negative 12/26/2015 [facility] URINE AND STOOL UA Nitrite Negative (12/26/15 5:01 PM) Negative 12/26/2015 [facility] URINE AND STOOL UA Blood Negative (12/26/15 5:01 PM) Negative 12/26/2015 [facility] URINE AND STOOL UA Bili Negative *NA* (12/26/15 5:01 PM) Negative 12/26/2015 [facility] URINE AND STOOL UA Mucus Few /LPF None Seen /LPF 12/26/2015 [facility] URINE AND STOOL UA Bacteria Occasional /HPF None Seen /HPF 12/26/2015 [facility] URINE AND STOOL UA RBC 1 /HPF 0 - 2 12/26/2015 [facility] URINE AND STOOL UA WBC 4 /HPF 0 - 5 12/26/2015 [facility] URINE AND STOOL UA Sq Epi Occasional /LPF Few /LPF 12/26/2015 [facility] URINE CHEM U Preg Positive *ABN* (12/26/15 5:01 PM) Negative 12/26/2015 [facility] CHEM PANEL eGFR 111 mL/min/1.73m2 12/26/2015 Result Comment: The eGFR is calculated using the modified Chairez equation 0.413 x Height (cm) /Serum Creatinine (mg/dL). [facility] CHEM PANEL Chloride Lvl 106 meq/L 95 - 109 12/26/2015 [facility] CHEM PANEL Potassium Lvl 3.2 meq/L 3.5 - 5.1 12/26/2015 [facility] CHEM PANEL Sodium Lvl 139 meq/L 135 - 145 12/26/2015 [facility] CHEM PANEL Creatinine Lvl 0.57 mg/dL 0.50 - 1.40 12/26/2015 [facility] CHEM PANEL BUN 7 mg/dL 7 - 22 12/26/2015 [facility] CHEM PANEL Bili Total 0.1 mg/dL 0.2 - 1.3 12/26/2015 [facility] CHEM PANEL Alk Phos 110 unit/L 39 - 136 12/26/2015 [facility] CHEM PANEL AST 10 unit/L 0 - 37 12/26/2015 [facility] CHEM PANEL ALT 18 unit/L 0 - 65 12/26/2015 [facility] CHEM PANEL Albumin Lvl 2.5 g/dL 3.5 - 5.0 12/26/2015 [facility] CHEM PANEL Total Protein 6.9 g/dL 6.4 - 8.4 12/26/2015 [facility] CHEM PANEL Calcium Lvl 8.8 mg/dL 8.5 - 10.5 12/26/2015 [facility] CHEM PANEL CO2 26 meq/L 24 - 32 12/26/2015 [facility] CHEM PANEL Glucose Lvl 111 mg/dL 70 - 99 12/26/2015 [facility] CHEM PANEL A/G Ratio 0.6 0.7 - 1.6 12/26/2015 [facility] CHEM PANEL Globulin 4.4 g/dL 2.7 - 4.2 12/26/2015 [facility] CHEM PANEL B/C Ratio 12 6 - 25 12/26/2015 [facility] CHEM PANEL AGAP 10.2 meq/L 10.0 - 20.0 12/26/2015 [facility] HEMATOLOGY MCHC 33.5 g/dL 32.0 - 36.0 12/26/2015 [facility] HEMATOLOGY MCH 29.0 pg 27.0 - 31.0 12/26/2015 [facility] HEMATOLOGY Platelet 155 K/CMM 133 - 450 12/26/2015 [facility] HEMATOLOGY RDW 14.8 % 11.5 - 14.5 12/26/2015 [facility] HEMATOLOGY MPV 8.0 fL 7.4 - 10.4 12/26/2015 [facility] HEMATOLOGY MCV 86.7 fL 80.0 - 98.0 12/26/2015 [facility] HEMATOLOGY Hct 33.5 % 36.0 - 48.0 12/26/2015 [facility] HEMATOLOGY WBC 6.7 K/CMM 3.7 - 10.4 12/26/2015 [facility] HEMATOLOGY Hgb 11.2 g/dL 12.0 - 16.0 12/26/2015 [facility] HEMATOLOGY RBC 3.87 M/CMM 4.20 - 5.40 12/26/2015 [facility] HEMATOLOGY Eosinophils # 0.1 K/CMM 0.0 - 0.5 12/26/2015 [facility] HEMATOLOGY Segs-Bands # 5.2 K/CMM 1.5 - 8.1 12/26/2015 [facility] HEMATOLOGY Basophils 0.2 % 0.0 - 1.0 12/26/2015 [facility] HEMATOLOGY Eosinophils 1.4 % 0.0 - 4.0 12/26/2015 [facility] HEMATOLOGY Monocytes # 0.4 K/CMM 0.0 - 0.8 12/26/2015 [facility] HEMATOLOGY Lymphocytes # 1.1 K/CMM 1.0 - 5.5 12/26/2015 [facility] HEMATOLOGY Segs 76.8 % 45.0 - 75.0 12/26/2015 [facility] HEMATOLOGY Monocytes 5.2 % 2.0 - 12.0 12/26/2015 [facility] HEMATOLOGY Lymphocytes 16.4 % 20.0 - 40.0 12/26/2015 [facility] URINE AND STOOL UA Ketones Negative mg/dL Negative mg/dL 12/18/2015 [facility] URINE AND STOOL UA Leuk Est Large *ABN* (12/18/15 1:49 PM) Negative 12/18/2015 [facility] URINE AND STOOL UA Protein Negative mg/dL Negative mg/dL 12/18/2015 [facility] URINE AND STOOL UA pH 7.0 5.0 - 8.0 12/18/2015 [facility] URINE AND STOOL UA Glucose Negative mg/dL Negative mg/dL 12/18/2015 [facility] URINE AND STOOL UA RBC null 0 - 2 12/18/2015 [facility] URINE AND STOOL UA WBC 4 /HPF 0 - 5 12/18/2015 [facility] URINE AND STOOL UA Sq Epi Few /LPF Few /LPF 12/18/2015 [facility] URINE AND STOOL UA Urobilinogen <=1.0 mg/dL 0.1 - 1.0 12/18/2015 [facility] URINE AND STOOL UA Color Ltyellow 12/18/2015 [facility] URINE AND STOOL UA Spec Grav 1.011 <=1.030 12/18/2015 [facility] URINE AND STOOL UA Nitrite Negative (12/18/15 1:49 PM) Negative 12/18/2015 [facility] URINE AND STOOL UA Bili Negative *NA* (12/18/15 1:49 PM) Negative 12/18/2015 [facility] URINE AND STOOL UA Blood Large *ABN* (12/18/15 1:49 PM) Negative 12/18/2015 [facility] URINE AND STOOL UA Turbidity Clear (12/18/15 1:49 PM) Clear 12/18/2015 [facility] CHEMISTRY Amylase Lvl 36 unit/L 25 - 115 05/11/2013 Normal [facility] CHEMISTRY Lipase Lvl 120 unit/L 73 - 393 05/11/2013 Normal [facility] CHEMISTRY Chloride Lvl 105 meq/L 95 - 109 05/11/2013 Normal [facility] CHEMISTRY Potassium Lvl 3.5 meq/L 3.5 - 5.1 05/11/2013 Normal [facility] CHEMISTRY Sodium Lvl 140 meq/L 135 - 145 05/11/2013 Normal [facility] CHEMISTRY BUN 11 mg/dL 7 - 22 05/11/2013 Normal [facility] CHEMISTRY Creatinine Lvl 0.7 mg/dL 0.5 - 1.4 05/11/2013 Normal [facility] CHEMISTRY Glucose Lvl 104 mg/dL 70 - 99 05/11/2013 [place] 2Interpretive Data: Adult reference range values reflect the clinical guidelines of the [place] [employer]. [facility] CHEMISTRY ASPARTATE TRANSAMINASE 16 unit/L 0 - 37 05/11/2013 Normal [facility] CHEMISTRY Bili Total 0.2 mg/dL 0.2 - 1.3 05/11/2013 Normal [facility] CHEMISTRY ALANINE AMINOTRANSFERASE 19 unit/L 0 - 65 05/11/2013 Normal [facility] CHEMISTRY Calcium Lvl 9.2 mg/dL 8.5 - 10.5 05/11/2013 Normal [facility] CHEMISTRY CO2 24 meq/L 24 - 32 05/11/2013 Normal [facility] CHEMISTRY Albumin Lvl 4.0 g/dL 3.5 - 5.0 05/11/2013 Normal [facility] CHEMISTRY Total Protein 8.5 g/dL 6.4 - 8.4 05/11/2013 HI [facility] CHEMISTRY Alk Phos 119 unit/L 80 - 406 05/11/2013 Normal [facility] CHEMISTRY eGFR See Comment 05/11/2013 1Result Comment: No height is recorded for this patient; estimated GFR cannot be calculated. [facility] CHEMISTRY AGAP 14.5 meq/L 10.0 - 20.0 05/11/2013 Normal [facility] CHEMISTRY B/C Ratio 16 6 - 25 05/11/2013 Normal [facility] CHEMISTRY Globulin 4.5 g/dL 2.0 - 4.0 05/11/2013 HI [facility] CHEMISTRY A/G Ratio 0.9 0.7 - 1.6 05/11/2013 Normal [facility] HEMATOLOGY Hgb 12.1 g/dL 12.0 - 16.0 05/11/2013 Normal [facility] HEMATOLOGY RDW 14.5 % 11.5 - 14.5 05/11/2013 Normal [facility] HEMATOLOGY Platelet 195 K/CMM 133 - 450 05/11/2013 Normal [facility] HEMATOLOGY MCHC 33.7 g/dL 32.0 - 36.0 05/11/2013 Normal [facility] HEMATOLOGY MCV 84.7 fL 81.0 - 99.0 05/11/2013 Normal [facility] HEMATOLOGY Hct 35.9 % 36.0 - 48.0 05/11/2013 LOW [facility] HEMATOLOGY WBC X 10x3 5.9 K/CMM 3.7 - 10.4 05/11/2013 Normal [facility] HEMATOLOGY RBC X 10x6 4.24 M/CMM 4.20 - 5.40 05/11/2013 Normal [facility] HEMATOLOGY MCH 28.5 pg 27.0 - 31.0 05/11/2013 Normal [facility] HEMATOLOGY MPV 8.7 fL 7.4 - 10.4 05/11/2013 Normal [facility] HEMATOLOGY Basophils # 0.0 K/CMM 0.0 - 0.2 05/11/2013 Normal [facility] HEMATOLOGY Eosinophils # 0.1 K/CMM 0.0 - 0.5 05/11/2013 Normal [facility] HEMATOLOGY Monocytes # 0.3 K/CMM 0.0 - 0.8 05/11/2013 Normal [facility] HEMATOLOGY Segs-Bands # 3.1 K/CMM 1.5 - 8.1 05/11/2013 Normal [facility] HEMATOLOGY Lymphocytes # 2.3 K/CMM 1.0 - 5.5 05/11/2013 Normal [facility] HEMATOLOGY Monocytes 5.6 % 2.0 - 12.0 05/11/2013 Normal [facility] HEMATOLOGY Lymphocytes 39.2 % 20.0 - 40.0 05/11/2013 Normal [facility] HEMATOLOGY Eosinophils 2.0 % 0.0 - 4.0 05/11/2013 Normal [facility] HEMATOLOGY Basophils 0.5 % 0.0 - 1.0 05/11/2013 Normal [facility] HEMATOLOGY Segs 52.7 % 34.0 - 64.0 05/11/2013 Normal [facility] URINALYSIS UA pH 6.0 5.0 - 8.0 05/11/2013 Normal [facility] URINALYSIS UA Spec Grav 1.033 <=1.030 05/11/2013 HI [facility] URINALYSIS UA Turbidity Slight *ABN* (05/11/2013 00:15:00) Clear 05/11/2013 ABN [facility] URINALYSIS UA Glucose Negative mg/dL Negative 05/11/2013 [facility] URINALYSIS UA Protein Negative mg/dL Negative 05/11/2013 Normal [facility] URINALYSIS UA Color Yellow *NA* (05/11/2013 00:15:00) Yellow 05/11/2013 [facility] URINALYSIS UA Urobilinogen <=1.0 mg/dL 0.1 - 1.0 05/11/2013 [facility] URINALYSIS UA CaOx Nanci Occasional /HPF None Seen 05/11/2013 [facility] URINALYSIS UA Bili Negative *NA* (05/11/2013 00:15:00) Negative 05/11/2013 [facility] URINALYSIS UA Ketones Negative mg/dL Negative 05/11/2013 [facility] URINALYSIS UA Nitrite Negative (05/11/2013 00:15:00) Negative 05/11/2013 Normal [facility] URINALYSIS UA Blood Negative (05/11/2013 00:15:00) Negative 05/11/2013 Normal [facility] URINALYSIS UA Leuk Est Negative (05/11/2013 00:15:00) Negative 05/11/2013 Normal [facility] URINALYSIS UA Mucus Moderate /LPF None Seen 05/11/2013 ABN [facility] URINALYSIS UA RBC 1 /HPF 0 - 2 05/11/2013 Normal [facility] URINALYSIS UA WBC 2 /HPF 0 - 5 05/11/2013 Normal [facility] URINALYSIS UA Sq Epi Few /LPF Few 05/11/2013 [facility] Abdomen RUQ US Abdomen RUQ US PROCEDURE: Abdomen RUQ US REASON FOR EXAM: See Clinic Indication CLINICAL INFORMATION Abdominal pain, acute COMPARISON: None. TECHNIQUE: Grayscale and limited color sonographic evaluation of the right upper quadrant of the abdomen and gallbladder region was performed with standard technique. FINDINGS: LIVER: The visualized liver shows normal size, contour, and morphology with limited evaluation of the parenchymal echo texture secondary to bowel gas. BILE DUCTS: The intrahepatic and extrahepatic bile ducts are not dilated with the common bile duct measuring 3.7 mm. The distal common bile duct is not well seen. GALLBLADDER: The gallbladder is contracted. There are no gallstones, gallbladder sludge, pericholecystic fluid or wall thickening. PANCREAS: The pancreas body is normal, the head and tail are obscured by bowel gas. KIDNEY: The right kidney measures 10.1 x 4.3 x 4.3 cm in length. The right renal cortical thickness measures 2.0 cm. There is normal renal contour and morphology, with normal parenchymal echotexture. There is no hydronephrosis. AORTA AND INFERIOR VENA CAVA: Not visualized.. ASCITES: There is no right upper quadrant abdominal ascites. IMPRESSION: 1. Contracted gallbladder. SL: 14 05/11/2013 - - Read by: Rafiq Kemp Dictated Date/time: 05/11/13 01:44 Electronically Signed by: Rafiq Kemp MD 05/11/13 01:46 FINAL REPORT [facility] Vital Signs Vital Sign Value Date Comments Source Respitory Rate 16 03/17/2016 [facility] Heart Rate 90 03/17/2016 [facility] Temperature Oral (F) 98.5 F 03/17/2016 [facility] Systolic (mm Hg) 125 03/17/2016 [facility] Diastolic (mm Hg) 85 03/17/2016 [facility] Heart Rate 73 03/17/2016 [facility] Respitory Rate 16 03/17/2016 [facility] Systolic (mm Hg) 114 03/17/2016 [facility] Diastolic (mm Hg) 81 03/17/2016 [facility] Temperature Oral (F) 98.6 F 03/17/2016 [facility] Systolic (mm Hg) 118 03/17/2016 [facility] Diastolic (mm Hg) 83 03/17/2016 [facility] Temperature Oral (F) 98.5 F 03/17/2016 [facility] Respitory Rate 16 03/17/2016 [facility] Heart Rate 85 03/17/2016 [facility] BMI Calculated 45.44 03/15/2016 [facility] Weight 109.091 03/15/2016 [facility] Height 154.94 cm 03/15/2016 [facility] Weight 107.727 03/08/2016 [facility] Temperature Oral (F) 98.4 F 03/08/2016 [facility] Respitory Rate 20 03/08/2016 [facility] Heart Rate 81 03/08/2016 [facility] Systolic (mm Hg) 137 03/08/2016 [facility] Diastolic (mm Hg) 73 03/08/2016 [facility] BMI Calculated 44.87 03/08/2016 [facility] Height 154.94 cm 03/08/2016 [facility] Weight 107.727 03/08/2016 [facility] BMI Calculated 44.87 03/08/2016 [facility] Height 154.94 cm 03/08/2016 [facility] Systolic (mm Hg) 110 02/14/2016 [facility] Diastolic (mm Hg) 55 02/14/2016 [facility] Systolic (mm Hg) 126 02/14/2016 [facility] Diastolic (mm Hg) 68 02/14/2016 [facility] Systolic (mm Hg) 114 02/14/2016 [facility] Diastolic (mm Hg) 60 02/14/2016 [facility] Temperature Oral (F) 99.0 F 02/14/2016 [facility] Respitory Rate 18 02/14/2016 [facility] Heart Rate 96 02/14/2016 [facility] BMI Calculated 43.36 02/14/2016 [facility] Height 154.94 cm 02/14/2016 [facility] Weight 104.091 02/14/2016 [facility] Temperature Oral (F) 98.1 F 12/26/2015 [facility] Heart Rate 100 12/26/2015 [facility] Respitory Rate 20 12/26/2015 [facility] Systolic (mm Hg) 128 12/26/2015 [facility] Diastolic (mm Hg) 73 12/26/2015 [facility] BMI Calculated 40.71 12/26/2015 [facility] Weight 97.727 12/26/2015 [facility] Temperature Oral (F) 98.1 F 12/26/2015 [facility] Height 154.94 cm 12/26/2015 [facility] Systolic (mm Hg) 126 12/26/2015 [facility] Diastolic (mm Hg) 82 12/26/2015 [facility] Respitory Rate 18 12/26/2015 [facility] Heart Rate 117 12/26/2015 [facility] Temperature Oral (F) 98.6 F 12/18/2015 [facility] Respitory Rate 18 12/18/2015 [facility] Heart Rate 85 12/18/2015 [facility] Systolic (mm Hg) 117 12/18/2015 [facility] Diastolic (mm Hg) 70 12/18/2015 [facility] Weight 97.727 12/18/2015 [facility] Systolic (mm Hg) 125 12/18/2015 [facility] Diastolic (mm Hg) 69 12/18/2015 [facility] Heart Rate 89 12/18/2015 [facility] BMI Calculated 40.71 12/18/2015 [facility] Height 154.94 cm 12/18/2015 [facility] Respitory Rate 18 12/18/2015 [facility] Temperature Oral (F) 99.1 F 12/18/2015 [facility] Heart Rate 68 05/11/2013 [facility] Respitory Rate 16 05/11/2013 [facility] Systolic (mm Hg) 104 05/11/2013 [facility] Diastolic (mm Hg) 72 05/11/2013 [facility] Temperature Oral (F) 97.0 F 05/11/2013 [facility] Heart Rate 71 05/11/2013 [facility] Systolic (mm Hg) 114 05/11/2013 [facility] Respitory Rate 16 05/11/2013 [facility] Diastolic (mm Hg) 68 05/11/2013 [facility] Systolic (mm Hg) 118 05/11/2013 [facility] Respitory Rate 16 05/11/2013 [facility] Diastolic (mm Hg) 72 05/11/2013 [facility] Heart Rate 72 05/11/2013 [facility] Temperature Oral (F) 97.4 F 05/11/2013 [facility] Temperature Oral (F) 97.8 F 05/11/2013 [facility] Weight 90.909 05/11/2013 [facility] Encounters Location Location Details Encounter Type Encounter Number Reason For Visit Attending Provider ADM Date DC Date Status Source [facility] Emergency [id number] ASCENCION RICE 05/10/2013 05/11/[address] [facility] Emergency [id number] Kishan Pires 12/18/2015 12/18/2015 [facility] Emergency [id number] Tre Taylor 12/26/2015 12/26/2015 [facility] Emergency [id number] Pat Zimmerman 02/14/2016 02/14/2016 [facility] Emergency [id number] Pat Zimmerman 03/08/2016 03/08/2016 [facility] Inpatient [id number] Rodriguez Amanda 03/15/2016 03/17/2016 [facility] Procedures Procedure Code Date Perfomer Comments Source Stent placement<sup>1</sup> [id number] 04/29/2012 kidney stent placed for stones [facility] Lithotripsy [id number] [facility]
--- OUTSIDE RECORDS SUMMARY | 2018-02-18 22:03 | XMS REPORT | Summary of Care ---
Author Author [facility] Organization [facility] Address Unknown Phone Unavailable Encounter JACINTO Ervin(LUDA) [id number] Date(s): 12/18/15 - 12/18/15 [facility] [address] [place] [address]- Discharge Diagnosis: Acute cystitis during in second trimester Discharge Diagnosis: 26 weeks gestation of Discharge Disposition: Home or Self Care Attending Physician: Kishan Pires MD Vital Signs Most recent to 1 2 oldest [Reference Range]: Height 154.94 cm (12/18/15 1:55 PM) Temperature Oral 98.6 DegF 99.1 DegF [96.8-99.7 DegF] (12/18/15 2:54 PM) (12/18/15 1:55 PM) Blood Pressure 117/70 mmHg 125/69 mmHg [90-138/45-84 mmHg] (12/18/15 2:54 PM) (12/18/15 1:55 PM) Respiratory Rate 18 BRMIN 18 BRMIN [14-20 BRMIN] (12/18/15 2:54 PM) (12/18/15 1:55 PM) Peripheral Pulse 85 bpm 89 bpm Rate [55-90 bpm] (12/18/15 2:54 PM) (12/18/15 1:55 PM) Weight 97.727 kg (12/18/15 1:55 PM) Body Mass Index 40.71 m2 (12/18/15 1:55 PM) Problem List Condition Effective Dates Status Health Status Informant Kidney Resolved stone(Confirmed) (Confirmed) 12/18/15 Active Allergies, Adverse Reactions, Alerts Substance Reaction Severity Status NKDA Active Medications Macrobid 100 mg oral capsule 100 mg=1 cap, PO, BID, X 7 day, # 14 cap, 0 Refill(s) Start Date: 12/18/15 Stop Date: 12/25/15 Status: Ordered 1 Plus 1 oral tablet 1 tab, PO, Daily, # 30 tab, 0 Refill(s) Start Date: 12/18/15 Status: Ordered Results URINE AND STOOL Most recent to 1 oldest [Reference Range]: UA Turbidity [Clear] Clear (12/18/15 1:49 PM) UA Color Ltyellow *NA* (12/18/15 1:49 PM) UA pH [5.0-8.0] 7.0 (12/18/15 1:49 PM) UA Spec Grav 1.011 [<=1.030] (12/18/15 1:49 PM) UA Glucose [Negative Negative mg/dL mg/dL] *NA* (12/18/15 1:49 PM) UA Blood [Negative] Large *ABN* (12/18/15 1:49 PM) UA Ketones [Negative Negative mg/dL mg/dL] *NA* (12/18/15 1:49 PM) UA Protein [Negative Negative mg/dL mg/dL] (12/18/15 1:49 PM) UA Urobilinogen <=1.0 mg/dL [0.1-1.0 mg/dL] *NA* (12/18/15 1:49 PM) UA Bili [Negative] Negative *NA* (12/18/15 1:49 PM) UA Leuk Est Large [Negative] *ABN* (12/18/15 1:49 PM) UA Nitrite Negative [Negative] (12/18/15 1:49 PM) UA WBC [0-5 /HPF] 4 /HPF (12/18/15 1:49 PM) UA RBC [0-2 /HPF] >182 /HPF *HI* (12/18/15 1:49 PM) UA Sq Epi [Few /LPF] Few /LPF *NA* (12/18/15 1:49 PM) Immunizations No data available for this section Procedures No data available for this section Social History Social History Type Response Smoking Status Never smoker; Exposure to Tobacco Smoke None; Cigarette Smoking Last 365 Days No; Reg Smoking Cessation Counseling No Assessment and Plan No data available for this section
--- OUTSIDE RECORDS SUMMARY | 2018-02-18 22:03 | XMS REPORT | CCD ---
Author Author Auto Generated Organization [facility] Address Unknown Phone Unavailable Care Team Providers Care Service Tech/Welder Name Role Phone Arabella Underwood CP Allergies, Adverse Reactions, Alerts Substance Reaction Status NKDA Active Problem List Condition Effective Dates Status Kidney stone Resolved Medications Medication Instructions Start Date End Date Status famotidine 20 mg, 2 mL, Route: IVP, Drug form: 05/11/2013 05/11/2013 Completed INJ, ONCE, Dosing Weight 90.909, kg, Priority: STAT, Start date: 05/11/13 0:15:00, Stop date: 05/11/13 0:15:00(Same as: Pepcid)Can be dilute in 5-10cc NS IVP: Slow IV push over at least 2 minutes. ondansetron 4 mg, 2 mL, Route: IVP, Drug form: 05/11/2013 05/11/2013 Completed INJ, ONCE, Dosing Weight 90.909, kg, Priority: STAT, Start date: 05/11/13 0:15:00, Stop date: 05/11/13 0:15:00(Same as: Zofran) Saline Flush 0.9% 5 mL, Route: IVP, Drug Form: INJ, 05/11/2013 05/11/2013 Discontinued Dosing Weight 90.909, kg, PRN, PRN Line Flush, Start date: 05/11/13 0:15:00, Duration: 24 hr, Stop date: 05/12/13 0:14:00(Same as: BD Posiflush) Sodium Chloride 0.9% 1,000 mL, Rate: 1,000 ml/hr, Infuse 05/11/2013 05/11/2013 Completed (Bolus) IV 1,000 mL over: 1 hr, Route: IV, Dosing Weight 90.909 kg, Total Volume: 1,000, Priority: STAT, Start date: 05/11/13 0:15:00, Duration: 1 doses or times, Stop date: 05/11/13 1:14:00 famotidine 20 mg, Route: PO, ONCE, Dosing 05/11/2013 05/11/2013 Completed Weight 90.909, kg, Priority: STAT, Start date: 05/11/13 2:40:00, Stop date: 05/11/13 2:40:00 Maalox Advanced 30 mL, Route: PO, Drug Form: SUSP, 05/11/2013 05/11/2013 Completed Regular Strength Dosing Weight 90.909, kg, ONCE, SUSP STAT, Start date: 05/11/13 2:40:00, Stop date: 05/11/13 2:40:00 famotidine 20 mg 20 mg=1 tab, PO, BID, # 30 tab, 0 05/11/2013 05/25/2013 Ordered oral tablet Refill(s) Carafate 1 g/10 mL 1 gm=10 ml, PO, QID-Before Meals, # 05/11/2013 05/21/2013 Ordered oral suspension 400 ml, 0 Refill(s) morphine Sulfate 4 mg, Route: IVP, Drug form: INJ, 05/11/2013 05/11/2013 Completed ONCE, Dosing Weight 90.909, kg, Priority: STAT, Start date: 05/11/13 1:41:00, Stop date: 05/11/13 1:41:00 Vital Signs Most recent to oldest [Reference Range]: 1 2 3 Temperature Oral [96.8-99.7 DegF] 97.0 DegF (05/11/2013 03:28:00) 97.4 DegF (05/11/2013 01:21:00) 97.8 DegF (05/10/2013 22:46:00) Systolic Blood Pressure [90-138 mmHg] 104 mmHg (05/11/2013 03:28:00) 114 mmHg (05/11/2013 02:53:00) 118 mmHg (05/11/2013 01:21:00) Diastolic Blood Pressure [45-84 mmHg] 72 mmHg (05/11/2013 03:28:00) 68 mmHg (05/11/2013 02:53:00) 72 mmHg (05/11/2013 01:21:00) Respiratory Rate [14-20 BRMIN] 16 BRMIN (05/11/2013 03:28:00) 16 BRMIN (05/11/2013 02:53:00) 16 BRMIN (05/11/2013 01:21:00) Peripheral Pulse Rate [55-90 bpm] 68 bpm (05/11/2013 03:28:00) 71 bpm (05/11/2013 02:53:00) 72 bpm (05/11/2013 01:21:00) Weight 90.909 kg (05/10/2013 22:46:00) Results URINALYSIS Most recent to oldest [Reference Range]: 1 UA Turbidity [Clear] Slight *ABN* (05/11/2013 00:15:00) UA Color [Yellow] Yellow *NA* (05/11/2013 00:15:00) UA pH [5.0-8.0] 6.0 (05/11/2013 00:15:00) UA Spec Grav [<=1.030] 1.033 *HI* (05/11/2013 00:15:00) UA Glucose [Negative mg/dL] Negative mg/dL *NA* (05/11/2013 00:15:00) UA Blood [Negative] Negative (05/11/2013 00:15:00) UA Ketones [Negative mg/dL] Negative mg/dL *NA* (05/11/2013 00:15:00) UA Protein [Negative mg/dL] Negative mg/dL (05/11/2013 00:15:00) UA Urobilinogen [0.1-1.0 mg/dL] <=1.0 mg/dL *NA* (05/11/2013 00:15:00) UA Bili [Negative] Negative *NA* (05/11/2013 00:15:00) UA Leuk Est [Negative] Negative (05/11/2013 00:15:00) UA Nitrite [Negative] Negative (05/11/2013 00:15:00) UA WBC [0-5 /HPF] 2 /HPF (05/11/2013 00:15:00) UA RBC [0-2 /HPF] 1 /HPF (05/11/2013 00:15:00) UA Sq Epi [Few /LPF] Few /LPF *NA* (05/11/2013 00:15:00) UA CaOx Nanci [None Seen /HPF] Occasional /HPF *NA* (05/11/2013 00:15:00) UA Mucus [None Seen /LPF] Moderate /LPF *ABN* (05/11/2013 00:15:00) CHEMISTRY Most recent to oldest [Reference Range]: 1 Sodium Lvl [135-145 mEq/L] 140 mEq/L (05/11/2013 00:35:00) Potassium Lvl [3.5-5.1 mEq/L] 3.5 mEq/L (05/11/2013 00:35:00) Chloride Lvl [95-109 mEq/L] 105 mEq/L (05/11/2013 00:35:00) CO2 [24-32 mEq/L] 24 mEq/L (05/11/2013:35:00) AGAP [10.0-20.0 mEq/L] 14.5 mEq/L (05/11/2013 00:35:00) Creatinine Lvl [0.5-1.4 mg/dL] 0.7 mg/dL (05/11/2013 00:35:00) eGFR See Comment 1 *NA* (05/11/2013 00:35:00) BUN [7-22 mg/dL] 11 mg/dL (05/11/2013 00:35:00) B/C Ratio [6-25] 16 (05/11/2013 00:35:00) Glucose Lvl [70-99 mg/dL] 104 mg/dL 2 *HI* (05/11/2013 00:35:00) Total Protein [6.4-8.4 g/dL] 8.5 g/dL *HI* (05/11/2013 00:35:00) Albumin Lvl [3.5-5.0 g/dL] 4.0 g/dL (05/11/2013 00:35:00) Globulin [2.0-4.0 g/dL] 4.5 g/dL *HI* (05/11/2013 00:35:00) A/G Ratio [0.7-1.6] 0.9 (05/11/2013 00:35:00) Calcium Lvl [8.5-10.5 mg/dL] 9.2 mg/dL (05/11/2013:35:00) ALT [0-65 unit/L] 19 unit/L (05/11/2013:35:00) AST [0-37 unit/L] 16 unit/L (05/11/2013:35:00) Alk Phos [80-406 unit/L] 119 unit/L (05/11/2013:35:00) Bili Total [0.2-1.3 mg/dL] 0.2 mg/dL (05/11/2013:35:00) Amylase Lvl [25-115 unit/L] 36 unit/L (05/11/2013 00:35:00) Lipase Lvl [73-393 unit/L] 120 unit/L (05/11/2013:35:00) 1Result Comment: No height is recorded for this patient; estimated GFR cannot be calculated. 2Interpretive Data: Adult reference range values reflect the clinical guidelines of the [place] [employer]. HEMATOLOGY Most recent to oldest [Reference Range]: 1 WBC [3.7-10.4 K/CMM] 5.9 K/CMM (05/11/2013:35:00) RBC [4.20-5.40 M/CMM] 4.24 M/CMM (05/11/2013:35:00) Hgb [12.0-16.0 g/dL] 12.1 g/dL (05/11/2013:35:00) Hct [36.0-48.0 %] 35.9 % *LOW* (05/11/2013:35:00) MCV [81.0-99.0 fL] 84.7 fL (05/11/2013:35:00) MCH [27.0-31.0 pg] 28.5 pg (05/11/2013:35:00) MCHC [32.0-36.0 g/dL] 33.7 g/dL (05/11/2013:35:00) RDW [11.5-14.5 %] 14.5 % (05/11/2013 00:35:00) Platelet [133-450 K/CMM] 195 K/CMM (05/11/2013 00:35:00) MPV [7.4-10.4 fL] 8.7 fL (05/11/2013 00:35:00) Segs [34.0-64.0 %] 52.7 % (05/11/2013 00:35:00) Lymphocytes [20.0-40.0 %] 39.2 % (05/11/2013 00:35:00) Monocytes [2.0-12.0 %] 5.6 % (05/11/2013 00:35:00) Eosinophils [0.0-4.0 %] 2.0 % (05/11/2013 00:35:00) Basophils [0.0-1.0 %] 0.5 % (05/11/2013 00:35:00) Segs-Bands # [1.5-8.1 K/CMM] 3.1 K/CMM (05/11/2013 00:35:00) Lymphocytes # [1.0-5.5 K/CMM] 2.3 K/CMM (05/11/2013 00:35:00) Monocytes # [0.0-0.8 K/CMM] 0.3 K/CMM (05/11/2013 00:35:00) Eosinophils # [0.0-0.5 K/CMM] 0.1 K/CMM (05/11/2013 00:35:00) Basophils # [0.0-0.2 K/CMM] 0.0 K/CMM (05/11/2013 00:35:00)
--- OUTSIDE RECORDS SUMMARY | 2018-02-18 22:03 | XMS REPORT | Summary of Care ---
Author Author [facility] Organization [facility] Address Unknown Phone Unavailable Encounter JACINTO Ervin(LUDA) [id number] Date(s): 02/13/16 - 02/13/16 [facility] [address] [place] [address]- [phone] Discharge Diagnosis: Discharge Diagnosis: Labor, false (Kael-Smith), antepartum Discharge Diagnosis: Acute vaginitis Discharge Disposition: Home or Self Care Attending Physician: Pat Zimmerman MD Vital Signs 1 2 3 Most recent to oldest [Reference Range]: 154.94 cm (02/13/16 7:39 PM) Height 99.0 DegF (02/13/16 7:39 PM) Temperature Oral [96.8-99.7 DegF] 110/55 mmHg (02/13/16 9:30 PM) 126/68 mmHg (02/13/16 9:00 PM) 114/60 mmHg (02/13/16 8:30 PM) Blood Pressure [90-138/45-84 mmHg] 18 BRMIN (02/13/16 7:39 PM) Respiratory Rate [14-20 BRMIN] 96 bpm *HI* (02/13/16 7:39 PM) Peripheral Pulse Rate [55-90 bpm] 104.091 kg (02/13/16 7:39 PM) Weight 43.36 m2 (02/13/16 7:39 PM) Body Mass Index Problem List Condition Effective Dates Status Health Status Informant Kidney Resolved stone(Confirmed) (Confirmed) 12/18/15 Active Allergies, Adverse Reactions, Alerts Substance Reaction Severity Status NKDA Active Medications Lactated Ringers 1,000 mL 1,000 mL, Rate: 125 ml/hr, Infuse over: 8 hr, Route: IV, Dosing Weight 104.091 k g, Total Volume: 1,000, Start date: 10/17/16 20:10:00 CDT, Duration: 30 day, Sto p date: 03/14/16 20:09:00 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 Start Date: 02/13/16 Stop Date: 02/14/16 Status: Discontinued Lactated Ringers Injection IV (Lactated Ringers (Bolus) IV) 1,000 mL, 1,000 ml/hr, Infuse Over: 1 hr, Route: IV, ONCE, Priority: STAT, Dosin g Weight 104.091 kg, Start date: 02/13/16 20:10:00 CDT, Duration: 1 doses or marisa es, Stop date: 02/13/16 20:10:00 CDT Start Date: 02/13/16 Stop Date: 02/13/16 Status: Completed MetroGel-Vaginal 0.75% gel with applicator 1 appl, VAG, Bedtime, X 5 day, # 1 ea, 0 Refill(s) Start Date: 02/13/16 Stop Date: 02/18/16 Status: Ordered Results URINE AND STOOL Most recent to 1 oldest [Reference Range]: UA Turbidity [Clear] Slight *ABN* (02/13/16 8:35 PM) UA Color Ltyellow *NA* (02/13/16 8:35 PM) UA pH [5.0-8.0] 7.0 (02/13/16 8:35 PM) UA Spec Grav 1.014 [<=1.030] (02/13/16 8:35 PM) UA Glucose [Negative Negative mg/dL mg/dL] *NA* (02/13/16 8:35 PM) UA Blood [Negative] Negative (02/13/16 8:35 PM) UA Ketones [Negative Negative mg/dL mg/dL] *NA* (02/13/16 8:35 PM) UA Protein [Negative Negative mg/dL mg/dL] (02/13/16 8:35 PM) UA Urobilinogen <=1.0 mg/dL [0.1-1.0 mg/dL] *NA* (02/13/16 8:35 PM) UA Bili [Negative] Negative *NA* (02/13/16 8:35 PM) UA Leuk Est Small [Negative] *ABN* (02/13/16 8:35 PM) UA Nitrite Negative [Negative] (02/13/16 8:35 PM) UA WBC [0-5 /HPF] 4 /HPF (02/13/16 8:35 PM) UA RBC [0-2 /HPF] 2 /HPF (02/13/16 8:35 PM) UA Bacteria [None Occasional /HPF Seen /HPF] *NA* (02/13/16 8:35 PM) UA Sq Epi [Few /LPF] Few /LPF *NA* (02/13/16 8:35 PM) UA Amorph Nanci [None Occasional /HPF Seen /HPF] *NA* (02/13/16 8:35 PM) UA Renal Epi [<=0 5 /LPF /LPF] *HI* (02/13/16 8:35 PM) UA Mucus [None Seen Few /LPF /LPF] *NA* (02/13/16 8:35 PM) Immunizations No data available for this section Procedures Procedure Date Related Diagnosis Body Site Stent placement2012 1kidney stent placed for stones Social History Social History Type Response Substance Abuse 1 Alcohol 2 Smoking Status Never smoker; Exposure to Tobacco Smoke None; Cigarette Smoking Last 365 Days No; Reg Smoking Cessation Counseling No 1denies 2denies Assessment and Plan No data available for this section
--- OUTSIDE RECORDS SUMMARY | 2018-02-18 22:04 | XMS REPORT | Summary of Care ---
Author Author [facility] Organization [facility] Address Unknown Phone Unavailable Encounter JACINTO Ervin(LUDA) [id number] Date(s): 03/15/16 - 03/17/16 [facility] [address] [place] [address]- [phone] Discharge Disposition: Home or Self Care Attending Physician: Rodriguez Patel MD Admitting Physician: Rodriguez Patel MD Vital Signs 1 2 3 Most recent to oldest [Reference Range]: 154.94 cm (03/15/16 3:40 AM) Height 98.5 DegF (03/17/16 8:07 AM) 98.6 DegF (03/17/16 4:14 AM) 98.5 DegF (03/16/16 10:27 PM) Temperature Oral [96.4-99.1 DegF] 125/85 mmHg (03/17/16 8:07 AM) 114/81 mmHg (03/17/16 4:14 AM) 118/83 mmHg (03/16/16 10:27 PM) Blood Pressure [90-140/60-90 mmHg] 16 BRMIN (03/17/16 8:07 AM) 16 BRMIN (03/17/16 4:14 AM) 16 BRMIN (03/16/16 10:27 PM) Respiratory Rate [14-20 BRMIN] 90 bpm (03/17/16 8:07 AM) 73 bpm (03/17/16 4:14 AM) 85 bpm (03/16/16 10:27 PM) Peripheral Pulse Rate [60-100 bpm] 109.091 kg (03/15/16 3:40 AM) Weight 45.44 m2 (03/15/16 3:40 AM) Body Mass Index Problem List Condition Effective Dates Status Health Status Informant Kidney Resolved stone(Confirmed) (Confirmed) 12/18/15 - 03/15/16 Resolved Allergies, Adverse Reactions, Alerts Substance Reaction Severity Status NKDA Active Medications acetaminophen 1,000 mg, 2 tab, Route: PO, Drug form: TAB, Q6Hnow, Dosing Weight 109.091, kg, P riority: NOW, Start date: 03/15/16 19:14:00 LE[employer] PROCESS DEPLOYMENT CONSULTANT, Duration: 24 hr, Stop date: 13:14:00 LEAN PROCESS DEPLOYMENT CONSULTANT Notes: Max acetaminophen 4000 mg/day (4 gm/day). (Same as: Tylenol Extra Streng th) Start Date: 03/15/16 Stop Date: 03/15/16 Status: Deleted acetaminophen 650 mg, 2 tab, Route: PO, Drug form: TAB, Q4H, Dosing Weight 109.091, kg, PRN Ot her -See Comment, Start date: 03/15/16 22:58:00 LEAN PROCESS DEPLOYMENT CONSULTANT, Duration: 30 day, Stop date : 04/14/16 22:57:00 LEAN PROCESS DEPLOYMENT CONSULTANT Notes: Do not exceed 4 gm/day. (Same as: Tylenol) Start Date: 03/15/16 Stop Date: 03/17/16 Status: Discontinued acetaminophen-hydrocodone 325 mg-10 mg oral tablet 1 tab, Route: PO, Drug Form: TAB, Dosing Weight 109.091, kg, Q4H, PRN Pain Score 7-10, Start date: 03/15/16 22:58:00 LEAN PROCESS DEPLOYMENT CONSULTANT, Duration: 30 day, Stop date: 04/14/16 22:57:00 LEAN PROCESS DEPLOYMENT CONSULTANT Notes: Do not exceed 4gm/day of acetaminophen. (Same as: Joy 325/10) Start Date: 03/15/16 Stop Date: 03/17/16 Status: Discontinued acetaminophen-hydrocodone 325 mg-5 mg oral tablet 1 tab, Route: PO, Drug Form: TAB, Dosing Weight 109.091, kg, Q4H, PRN Pain Score 4-6, Start date: 03/15/16 3:41:00 LEAN PROCESS DEPLOYMENT CONSULTANT, Duration: 30 day, Stop date: 04/14/16 3: 40:00 LEAN PROCESS DEPLOYMENT CONSULTANT Notes: (Same as: Joy 325/5) Do not exceed 4gm/day of acetaminophen. Start Date: 03/15/16 Stop Date: 03/15/16 Status: Discontinued acetaminophen-hydrocodone 325 mg-5 mg oral tablet 2 tab, Route: PO, Drug Form: TAB, Dosing Weight 109.091, kg, Q4H, PRN Pain Score 7-10, Start date: 03/15/16 3:41:00 LEAN PROCESS DEPLOYMENT CONSULTANT, Duration: 30 day, Stop date: 04/14/16 3 :40:00 LEAN PROCESS DEPLOYMENT CONSULTANT Notes: (Same as: Joy 325/5) Do not exceed 4gm/day of acetaminophen. Start Date: 03/15/16 Stop Date: 03/15/16 Status: Discontinued acetaminophen-hydrocodone 325 mg-5 mg oral tablet 1 tab, Route: PO, Drug Form: TAB, Dosing Weight 109.091, kg, Q4H, PRN Pain Score 4-6, Start date: 03/15/16 22:58:00 LEAN PROCESS DEPLOYMENT CONSULTANT, Duration: 30 day, Stop date: 04/14/16 2 2:57:00 LEAN PROCESS DEPLOYMENT CONSULTANT Notes: (Same as: Joy 325/5) Do not exceed 4gm/day of acetaminophen. Start Date: 03/15/16 Stop Date: 03/17/16 Status: Discontinued benzocaine-menthol topical 1 lozenge, Route: PO, Drug Form: ROEL, Dosing Weight 109.091, kg, PRN, PRN Sore T hroat, Start date: 03/15/16 22:58:00 LEAN PROCESS DEPLOYMENT CONSULTANT, Duration: 30 day, Stop date: 04/14/16 22:57:00 LEAN PROCESS DEPLOYMENT CONSULTANT Notes: Same as: Cepacol Start Date: 03/15/16 Stop Date: 03/17/16 Status: Discontinued bisacodyl 10 mg, 1 supp, Route: OK, Drug form: SUPP, PRN, Dosing Weight 109.091, kg, PRN O ther -See Comment, Start date: 03/15/16 22:58:00 LEAN PROCESS DEPLOYMENT CONSULTANT, Duration: 30 day, Stop altagracia e: 04/14/16 22:57:00 LEAN PROCESS DEPLOYMENT CONSULTANT Notes: (Same As: Dulcolax, Bisco-Lax) Start Date: 03/15/16 Stop Date: 03/17/16 Status: Discontinued butorphanol 2 mg, 2 mL, Route: IVP, Drug form: INJ, Q2H, Dosing Weight 109.091, kg, PRN Pain Score 7-10, Start date: 03/15/16 3:41:00 LEAN PROCESS DEPLOYMENT CONSULTANT, Duration: 30 day, Stop date: 03/29 11/11 3:40:00 LEAN PROCESS DEPLOYMENT CONSULTANT Notes: (Same As: Stadol) Start Date: 03/15/16 Stop Date: 03/15/16 Status: Discontinued butorphanol 1 mg, 1 mL, Route: IVP, Drug form: INJ, Q2H, Dosing Weight 109.091, kg, PRN Pain Score 4-6, Start date: 03/15/16 3:41:00 LEAN PROCESS DEPLOYMENT CONSULTANT, Duration: 30 day, Stop date: 04/14 3:40:00 LEAN PROCESS DEPLOYMENT CONSULTANT Notes: (Same As: Stadol) Start Date: 03/15/16 Stop Date: 03/15/16 Status: Discontinued carboprost 250 microgram, 1 mL, Route: IM, Drug form: INJ, ONCALL, Dosing Weight 109.091, k g, Start date: 03/15/16 4:00:00 LEAN PROCESS DEPLOYMENT CONSULTANT, Duration: 30 day, Stop date: 04/14/16 3:59: 00 LEAN PROCESS DEPLOYMENT CONSULTANT Notes: (Same As: Hemabate) Start Date: 03/15/16 Stop Date: 03/15/16 Status: Discontinued ceFAZolin (ANES) Route: IV, Drug form: INJ, ONCE, Stop date: 03/15/16 17:36:00 LEAN PROCESS DEPLOYMENT CONSULTANT Start Date: 03/15/16 Stop Date: 03/15/16 Status: Completed cefazolin + sodium chloride 0.9% INJ 100 mL 3 gm, Route: IVPB, ONCE, Dosing Weight 109.091, kg, Start date: 03/15/16 16:19:0 0 LEAN PROCESS DEPLOYMENT CONSULTANT, Duration: 1 doses or times, Stop date: 03/15/16 16:19:00 LEAN PROCESS DEPLOYMENT CONSULTANT, VIRTUAL ASSISTANT Surg ical Prophylaxis Only; For patients > 100 kg Notes: (Same As: Ancef, Kefzol) MEDICATION WASTE Product Size: 1000 mgP roduct Wasted: ___ mg Start Date: 03/15/16 Stop Date: 03/15/16 Status: Completed citric acid-sodium citrate 30 mL, Route: PO, Drug Form: SOLN, Dosing Weight 109.091, kg, ONCALL, Start date : 03/15/16 4:00:00 LEAN PROCESS DEPLOYMENT CONSULTANT, Duration: 30 day, Stop date: 04/14/16 3:59:00 LEAN PROCESS DEPLOYMENT CONSULTANT Notes: (Same As: Bicitra) Start Date: 03/15/16 Stop Date: 03/15/16 Status: Completed diphenhydrAMINE 12.5 mg, 0.5 tab, Route: PO, Drug form: TAB, Q6H, Dosing Weight 109.091, kg, PRN Itching, Start date: 03/15/16 19:14:00 LEAN PROCESS DEPLOYMENT CONSULTANT, Duration: 30 day, Stop date: 19:13:00 LEAN PROCESS DEPLOYMENT CONSULTANT Start Date: 03/15/16 Stop Date: 03/16/16 Status: Discontinued famotidine 20 mg, 2 mL, Route: IVP, Drug form: INJ, ONCALL, Dosing Weight 109.091, kg, Star t date: 03/15/16 4:00:00 LEAN PROCESS DEPLOYMENT CONSULTANT, Duration: 30 day, Stop date: 04/14/16 3:59:00 LEAN PROCESS DEPLOYMENT CONSULTANT Notes: (Same as: Pepcid)Can be dilute in 5-10cc NS IVP: Slow IV push over at le ast 2 minutes. Start Date: 03/15/16 Stop Date: 03/15/16 Status: Discontinued hydromorphone 0.3 mg, 0.3 mL, Route: IVP, Drug form: INJ, Q4H, Dosing Weight 109.091, kg, PRN Pain Score 7-10, Start date: 03/15/16 19:14:00 LEAN PROCESS DEPLOYMENT CONSULTANT, Duration: 30 day, Stop date: 04/14/16 19:13:00 LEAN PROCESS DEPLOYMENT CONSULTANT Start Date: 03/15/16 Stop Date: 03/16/16 Status: Discontinued hydromorphone (ANES) Route: EPIDURAL, Drug form: INJ, ONCE, Stop date: 03/15/16 17:45:00 LEAN PROCESS DEPLOYMENT CONSULTANT Start Date: 03/15/16 Stop Date: 03/15/16 Status: Completed ibuprofen 600 mg, 1 tab, Route: PO, Drug form: TAB, Q6H, Dosing Weight 109.091, kg, PRN Ot her -See Comment, Start date: 03/15/16 3:41:00 LEAN PROCESS DEPLOYMENT CONSULTANT, Duration: 30 day, Stop date: 04/14/16 3:40:00 LEAN PROCESS DEPLOYMENT CONSULTANT Notes: (Same as: Motrin)"Do Not Crush" Take with food. Start Date: 03/15/16 Stop Date: 03/15/16 Status: Discontinued ibuprofen 600 mg, 1 tab, Route: PO, Drug form: TAB, Q6H, Dosing Weight 109.091, kg, Start date: 03/16/16 0:00:00 LEAN PROCESS DEPLOYMENT CONSULTANT, Duration: 30 day, Stop date: 04/14/16 18:00:00 LEAN PROCESS DEPLOYMENT CONSULTANT Notes: (Same as: Motrin)"Do Not Crush" Take with food. Start Date: 03/16/16 Stop Date: 03/17/16 Status: Discontinued ketOROLAC 30 mg, 1 mL, Route: IVP, Drug form: INJ, Q6H, Dosing Weight 109.091, kg, PRN Latrice n Score 4-6, Start date: 03/15/16 19:14:00 LEAN PROCESS DEPLOYMENT CONSULTANT, Duration: 24 hr, Stop date: 02/27 12/12 19:13:00 LEAN PROCESS DEPLOYMENT CONSULTANT Notes: (Same as:Toradol) IV bolus must be given >15 seconds. Give IM administration slowly and deeply into the muscle.Not for use > 4 days MEDICATION WASTE Product Size: 30 mgProduct Wasted: ___ mg Start Date: 03/15/16 Stop Date: 03/16/16 Status: Discontinued Lactated Ringers (Bolus) IV 1,000 mL, 1,000 ml/hr, Infuse Over: 1 hr, Route: IV, 1,000, Drug form: INJ, ONCE , Dosing Weight 109.091 kg, Start date: 03/15/16 3:41:00 LEAN PROCESS DEPLOYMENT CONSULTANT, Stop date: 6 3:41:00 LEAN PROCESS DEPLOYMENT CONSULTANT, Bolus for regional anesthesia per unit protocol Start Date: 03/15/16 Stop Date: 03/15/16 Status: Completed Lactated Ringers 1,000 mL 1,000 mL, Rate: 100 ml/hr, Infuse over: 10 hr, Route: IV, Dosing Weight 109.091 kg, Total Volume: 1,000, Start date: 03/15/16 22:58:00 LEAN PROCESS DEPLOYMENT CONSULTANT, Duration: 30 day, St op date: 04/14/16 22:57:00 LEAN PROCESS DEPLOYMENT CONSULTANT Start Date: 03/15/16 Stop Date: 03/17/16 Status: Discontinued Lactated Ringers 1,000 mL 1,000 mL, Rate: 125 ml/hr, Infuse over: 8 hr, Route: IV, Dosing Weight 109.091 k g, Total Volume: 1,000, Start date: 03/15/16 3:41:00 LEAN PROCESS DEPLOYMENT CONSULTANT, Duration: 30 day, Stop date: 04/14/16 3:40:00 LEAN PROCESS DEPLOYMENT CONSULTANT Start Date: 03/15/16 Stop Date: 03/15/16 Status: Discontinued lanolin topical cream 1 appl, Route: TOP, PRN, Drug form: CRM, PRN Other -See Comment, Start date: 22:58:00 LEAN PROCESS DEPLOYMENT CONSULTANT, Duration: 30 day, Stop date: 04/14/16 22:57:00 LEAN PROCESS DEPLOYMENT CONSULTANT Start Date: 03/15/16 Stop Date: 03/17/16 Status: Discontinued lidocaine 1% 200 mg, 20 mL, Route: PERCUT, Drug Form: INJ, Dosing Weight 109.091, kg, PRN, OK N Other -See Comment, Start date: 03/15/16 3:41:00 LEAN PROCESS DEPLOYMENT CONSULTANT, Duration: 1 doses or marisa es, Stop date: Limited # of times Notes: (Same as: Xylocaine) Start Date: 03/15/16 Stop Date: 03/15/16 Status: Discontinued lidocaine 1% injectable solution 0.25 mL, Route: INTRADERM, Drug Form: INJ, Dosing Weight 109.091, kg, PRN, PRN O ther -See Comment, Start date: 03/15/16 3:41:00 LEAN PROCESS DEPLOYMENT CONSULTANT, Duration: 30 day, Stop date : 04/14/16 3:40:00 LEAN PROCESS DEPLOYMENT CONSULTANT Notes: (Same as: Xylocaine) Start Date: 03/15/16 Stop Date: 03/15/16 Status: Discontinued LR 1000 mL INJ (ANES) Route: IV, Total Volume: 1,000, Start date: 03/15/16 16:52:00 LEAN PROCESS DEPLOYMENT CONSULTANT, Stop date: 17:52:00 LEAN PROCESS DEPLOYMENT CONSULTANT Start Date: 03/15/16 Stop Date: 03/15/16 Status: Completed meperidine 12.5 mg, 0.25 mL, Route: IVP, Drug form: INJ, ONCE, Dosing Weight 109.091, kg, S tart date: 03/15/16 19:14:00 LEAN PROCESS DEPLOYMENT CONSULTANT, Stop date: 03/15/16 19:14:00 LEAN PROCESS DEPLOYMENT CONSULTANT Notes: (Same as: Demerol) "Use Precaution in Elderly, Seizure disorders, and Re nal impairment" Start Date: 03/15/16 Stop Date: 03/16/16 Status: Completed methylergonovine 0.2 mg, 1 mL, Route: IM, Drug form: INJ, ONCALL, Dosing Weight 109.091, kg, Star t date: 03/15/16 4:00:00 LEAN PROCESS DEPLOYMENT CONSULTANT, Duration: 30 day, Stop date: 04/14/16 3:59:00 LEAN PROCESS DEPLOYMENT CONSULTANT Notes: (Same as:Methergine) Start Date: 03/15/16 Stop Date: 03/15/16 Status: Discontinued metoclopramide 10 mg, Route: IVP, Drug form: INJ, Q6H, Dosing Weight 109.091, kg, PRN Nausea & Vomiting, Start date: 03/15/16 16:18:00 LEAN PROCESS DEPLOYMENT CONSULTANT, Duration: 30 day, Stop date: 04/14 16:17:00 LEAN PROCESS DEPLOYMENT CONSULTANT Start Date: 03/15/16 Stop Date: 03/15/16 Status: Deleted metoclopramide 10 mg, 2 mL, Route: IVP, Drug form: INJ, Q6H, Dosing Weight 109.091, kg, PRN Mickey sea & Vomiting, Start date: 03/15/16 3:41:00 LEAN PROCESS DEPLOYMENT CONSULTANT, Duration: 30 day, Stop date: 04/14/16 3:40:00 LEAN PROCESS DEPLOYMENT CONSULTANT Notes: (Same as: Reglan) Start Date: 03/15/16 Stop Date: 03/15/16 Status: Discontinued misoprostol 1,000 microgram, 5 tab, Route: OK, Drug form: TAB, ONCALL, Dosing Weight 109.091 , kg, Start date: 03/15/16 4:00:00 LEAN PROCESS DEPLOYMENT CONSULTANT, Duration: 1 doses or times Notes: (Same as:Cytotec) Take with food Start Date: 03/15/16 Stop Date: 03/15/16 Status: Discontinued morphine Sulfate 2 mg, 1 mL, Route: IVP, Drug form: INJ, Q2H, Dosing Weight 109.091, kg, PRN Pain Score 7-10, Start date: 03/15/16 16:18:00 LEAN PROCESS DEPLOYMENT CONSULTANT, Duration: 30 day, Stop date: 16:17:00 LEAN PROCESS DEPLOYMENT CONSULTANT Notes: (Same as:MORPhine Sulfate) Start Date: 03/15/16 Stop Date: 03/17/16 Status: Discontinued nalbuphine 2 mg, 0.2 mL, Route: IVP, Drug form: INJ, Q2H, Dosing Weight 109.091, kg, PRN It beverly, Start date: 03/15/16 19:14:00 LEAN PROCESS DEPLOYMENT CONSULTANT, Duration: 5 doses or times, Stop date: Limited # of times Notes: (Same As: Alon) Start Date: 03/15/16 Stop Date: 03/16/16 Status: Discontinued naloxone 0.4 mg, 1 mL, Route: IVP, Drug form: INJ, ONCALL, Dosing Weight 109.091, kg, Sta rt date: 03/15/16 20:00:00 LEAN PROCESS DEPLOYMENT CONSULTANT, Duration: 24 hr, Stop date: 03/16/16 19:59:00 CS T Notes: Same as Narcan Start Date: 03/15/16 Stop Date: 03/16/16 Status: Discontinued naloxone 0.1 mg, 0.25 mL, Route: SUB-Q, Drug form: INJ, Q6H, Dosing Weight 109.091, kg, P RN Itching, Start date: 03/15/16 19:14:00 LEAN PROCESS DEPLOYMENT CONSULTANT, Duration: 24 hr, Stop date: 03/16 19:13:00 LEAN PROCESS DEPLOYMENT CONSULTANT Notes: Same as Narcan Start Date: 03/15/16 Stop Date: 03/16/16 Status: Discontinued ondansetron 4 mg, Route: IVP, Q8H, Dosing Weight 109.091, kg, PRN Nausea & Vomiting, Start date: 03/15/16 16:18:00 LEAN PROCESS DEPLOYMENT CONSULTANT, Duration: 30 day, Stop date: 04/14/16 16:17:00 LEAN PROCESS DEPLOYMENT CONSULTANT Start Date: 03/15/16 Stop Date: 03/15/16 Status: Deleted ondansetron 4 mg, 2 mL, Route: IVP, Drug form: INJ, Q8H, Dosing Weight 109.091, kg, PRN Naus ea & Vomiting, Start date: 03/15/16 3:41:00 LEAN PROCESS DEPLOYMENT CONSULTANT, Duration: 30 day, Stop date: 04/14/16 3:40:00 LEAN PROCESS DEPLOYMENT CONSULTANT Notes: (Same as: Melisa) MEDICATION WASTE Product Size: 4 mgProduct Was rose: ___ mg Start Date: 03/15/16 Stop Date: 03/15/16 Status: Discontinued ondansetron 4 mg, 2 mL, Route: IVP, Drug form: INJ, Q6H, Dosing Weight 109.091, kg, PRN Naus ea & Vomiting, Start date: 03/15/16 19:14:00 LEAN PROCESS DEPLOYMENT CONSULTANT, Duration: 24 hr, Stop date: 03/16/16 19:13:00 LEAN PROCESS DEPLOYMENT CONSULTANT Notes: (Same as: Melisa) MEDICATION WASTE Product Size: 4 mgProduct Was rose: ___ mg Start Date: 03/15/16 Stop Date: 03/16/16 Status: Discontinued ondansetron (ANES) Route: IV, Drug form: INJ, ONCE, Stop date: 03/15/16 17:45:00 LEAN PROCESS DEPLOYMENT CONSULTANT Start Date: 03/15/16 Stop Date: 03/15/16 Status: Completed oxyCODONE 5 mg immediate release 5 mg, 1 tab, Route: PO, Drug form: TAB, Q4H, Dosing Weight 109.091, kg, PRN Pain Score 4-6, Start date: 03/15/16 19:14:00 LEAN PROCESS DEPLOYMENT CONSULTANT, Duration: 30 day, Stop date: 03/29 11/11 19:13:00 LEAN PROCESS DEPLOYMENT CONSULTANT Notes: (Same as: Roxicodone) Start Date: 03/15/16 Stop Date: 03/16/16 Status: Discontinued oxyCODONE 5 mg immediate release 10 mg, 2 tab, Route: PO, Drug form: TAB, Q4H, Dosing Weight 109.091, kg, PRN Latrice n Score 7-10, Start date: 03/15/16 19:14:00 LEAN PROCESS DEPLOYMENT CONSULTANT, Duration: 30 day, Stop date: 19:13:00 LEAN PROCESS DEPLOYMENT CONSULTANT Notes: (Same as: Roxicodone) Start Date: 03/15/16 Stop Date: 03/16/16 Status: Discontinued oxyCODONE 5 mg/5 mL oral solution 5 mg, 5 mL, Route: NG, Drug form: LIQ, Q4H, Dosing Weight 109.091, kg, PRN Pain Score 4-6, Start date: 03/15/16 19:14:00 LEAN PROCESS DEPLOYMENT CONSULTANT, Stop date: 04/14/16 19:13:00 LEAN PROCESS DEPLOYMENT CONSULTANT Notes: (Same as: 'Roxicodone) Start Date: 03/15/16 Stop Date: 03/16/16 Status: Discontinued oxyCODONE 5 mg/5 mL oral solution 10 mg, 10 mL, Route: NG, Drug form: LIQ, Q4H, Dosing Weight 109.091, kg, PRN Latrice n Score 7-10, Start date: 03/15/16 19:14:00 LEAN PROCESS DEPLOYMENT CONSULTANT, Stop date: 04/14/16 19:13:00 CS T Notes: (Same as: 'Roxicodone) Start Date: 03/15/16 Stop Date: 03/16/16 Status: Discontinued oxytocin (ANES) (ANES) Route: IV, Drug form: SOLN, Start date: 03/15/16 17:12:00 LEAN PROCESS DEPLOYMENT CONSULTANT, Stop date: 18:12:00 LEAN PROCESS DEPLOYMENT CONSULTANT Start Date: 03/15/16 Stop Date: 03/15/16 Status: Completed oxytocin 30 unit in D5LR 500mL 30 unit 30 unit, 500 mL, Rate: 42 ml/hr, Infuse over: 11.9 hr, Dosing Weight 109.091, kg , Route: IV, Total Volume: 500 mL, Start date: 03/15/16 22:58:00 LEAN PROCESS DEPLOYMENT CONSULTANT, Duration: 1 doses or times, Stop date: 03/16/16 10:51:00 LEAN PROCESS DEPLOYMENT CONSULTANT, Replace Every: 11.9 hr Notes: (Same as: OXYTOCIN-D5LR) Start Date: 03/15/16 Stop Date: 03/16/16 Status: Completed oxytocin 30 unit in D5LR 500mL 30 unit 30 unit, 500 mL, Rate: 42 ml/hr, Infuse over: 11.9 hr, Dosing Weight 109.091, kg , Route: IV, Total Volume: 500 mL, Start date: 03/15/16 3:41:00 LEAN PROCESS DEPLOYMENT CONSULTANT, Duration: 2 day, Stop date: 03/17/16 3:40:00 LEAN PROCESS DEPLOYMENT CONSULTANT, Replace Every: 11.9 hr Notes: (Same as: OXYTOCIN-D5LR) Start Date: 03/15/16 Stop Date: 03/15/16 Status: Discontinued oxytocin 30 unit in D5LR 500mL 30 unit 30 unit, 500 mL, Rate: Titrate, Dosing Weight 109.091, kg, Route: IV, Total Volu me: 500 mL, Start date: 03/15/16 3:41:00 LEAN PROCESS DEPLOYMENT CONSULTANT, Duration: 2 day, Stop date: 3:40:00 LEAN PROCESS DEPLOYMENT CONSULTANT, Replace Every: 24 hr Notes: (Same as: OXYTOCIN-D5LR) Start Date: 03/15/16 Stop Date: 03/15/16 Status: Discontinued Multivitamins oral tablet 1 tab, Route: PO, Drug Form: TAB, Dosing Weight 109.091, kg, Daily, Start date: 03/16/16 9:00:00 LEAN PROCESS DEPLOYMENT CONSULTANT, Duration: 30 day, Stop date: 04/14/16 9:00:00 LEAN PROCESS DEPLOYMENT CONSULTANT Start Date: 03/16/16 Stop Date: 03/17/16 Status: Discontinued promethazine 12.5 mg, 0.5 mL, Route: IM, Drug form: INJ, Q4H, Dosing Weight 109.091, kg, PRN Nausea & Vomiting, Start date: 03/15/16 16:18:00 LEAN PROCESS DEPLOYMENT CONSULTANT, Duration: 30 day, Stop date: 04/14/16 16:17:00 LEAN PROCESS DEPLOYMENT CONSULTANT Notes: Do not give IV push. (Same as: Phenergan) Start Date: 03/15/16 Stop Date: 03/17/16 Status: Discontinued promethazine + sodium chloride 0.9% INJ 50 mL 6.25 mg, 0.25 mL, Route: IVPB, Q6H, Dosing Weight 109.091, kg, PRN Nausea & Vomiting, Start date: 03/15/16 19:14:00 LEAN PROCESS DEPLOYMENT CONSULTANT, Duration: 24 hr, Stop date: 19:13:00 LEAN PROCESS DEPLOYMENT CONSULTANT Notes: Do not give IV push. (Same as: Phenergan) Start Date: 03/15/16 Stop Date: 03/16/16 Status: Discontinued simethicone 160 mg, 2 tab, Route: PO, Drug form: CHEWTAB, Q8H, Dosing Weight 109.091, kg, OK N Gas, Start date: 03/15/16 22:58:00 LEAN PROCESS DEPLOYMENT CONSULTANT, Duration: 30 day, Stop date: 04/14/16 22:57:00 LEAN PROCESS DEPLOYMENT CONSULTANT Notes: (Same as: Mylicon) Start Date: 03/15/16 Stop Date: 03/17/16 Status: Discontinued terbutaline 0.25 mg, 0.25 mL, Route: SUB-Q, Drug form: INJ, PRN, Dosing Weight 109.091, kg, PRN Other -See Comment, Start date: 03/15/16 3:41:00 LEAN PROCESS DEPLOYMENT CONSULTANT, Duration: 1 doses or t imes, Stop date: Limited # of times Notes: DO NOT USE IN VIRTUAL ASSISTANT AREA(Same As: Brethine) Start Date: 03/15/16 Stop Date: 03/15/16 Status: Discontinued Tylenol 1,000 mg, 100 mL, Route: IVPB, Drug form: INJ, Q6H, Dosing Weight 109.091, kg, S tart date: 03/16/16 0:00:00 LEAN PROCESS DEPLOYMENT CONSULTANT, Duration: 30 day, Stop date: 04/14/16 18:00:00 LEAN PROCESS DEPLOYMENT CONSULTANT Notes: Infuse over 15 minutesDo not exceed 4gm/day of acetaminophen MEDICAT ION WASTE Product Size: 1000 mgProduct Wasted: ___ mg Start Date: 03/16/16 Stop Date: 03/16/16 Status: Discontinued Tylenol with Codeine #3 oral tablet 1 tab, PO, Q4H, PRN Pain, X 7 day, # 42 tab, 0 Refill(s) Start Date: 03/16/16 Stop Date: 03/23/16 Status: Ordered Unasyn + sodium chloride 0.9% INJ 100 mL 1.5 gm, 1 ea, Route: IVPB, ABXQ8H, Dosing Weight 109.091, kg, Start date: 1:00:00 LEAN PROCESS DEPLOYMENT CONSULTANT, Duration: 2 doses or times, Stop date: 03/16/16 9:00:00 LEAN PROCESS DEPLOYMENT CONSULTANT Notes: Dosing based on Ampicillin component(Same as: Unasyn) Start Date: 03/16/16 Stop Date: 03/16/16 Status: Completed Vicoprofen 7.5 mg-200 mg oral tablet 1 tab, Route: PO, Drug Form: TAB, Dosing Weight 109.091, kg, Q6H, PRN Pain Score 7-10, Start date: 03/15/16 19:14:00 LEAN PROCESS DEPLOYMENT CONSULTANT, Duration: 24 hr, Stop date: 03/16/16 1 9:13:00 LEAN PROCESS DEPLOYMENT CONSULTANT Notes: (Same as: Vicoprofen) Start Date: 03/15/16 Stop Date: 03/16/16 Status: Discontinued zolpidem 5 mg, 1 tab, Route: PO, Drug form: TAB, Bedtime, Dosing Weight 109.091, kg, PRN Insomnia, Start date: 03/15/16 22:58:00 LEAN PROCESS DEPLOYMENT CONSULTANT, Duration: 30 day, Stop date: 22:57:00 LEAN PROCESS DEPLOYMENT CONSULTANT Notes: (Same As: Nancy) Start Date: 03/15/16 Stop Date: 03/17/16 Status: Discontinued Results BLOOD BANK RESULTS 1 2 3 Most recent to oldest [Reference Range]: A POS *Unknown* (03/15/16 4:42 AM) ABO/Rh Negative (03/15/16 4:42 AM) Antibody Scrn See Note 1 (03/15/16 4:13 AM) Rhig Reqd 1Result Comment: 03/15/2016 12:07 [id number] This patient is not a candidate for Rh(O)D immune globulin. 03/15/2016 12:07 tb IMMUNOLOGY 1 2 3 Most recent to oldest [Reference Range]: Non Reactive *NA* (03/15/16 4:13 AM) Treponemal Scr [Non Reactive] Negative *NA* (03/15/16 4:13 AM) HIV. [Negative] Negative *NA* (03/15/16 4:13 AM) Hep Bs Ag [Negative] HEMATOLOGY 1 2 3 Most recent to oldest [Reference Range]: 8.8 K/CMM (03/17/16 6:01 AM) 6.6 K/CMM (03/16/16 7:51 AM) 8.2 K/CMM (03/15/16 4:13 AM) WBC [3.7-10.4 K/CMM] 3.50 M/CMM *LOW* (03/17/16 6:01 AM) 3.06 M/CMM *LOW* (03/16/16 7:51 AM) 3.87 M/CMM *LOW* (03/15/16 4:13 AM) RBC [4.20-5.40 M/CMM] 9.8 g/dL *LOW* (03/17/16 6:01 AM) 8.5 g/dL *LOW* (03/16/16 7:51 AM) 10.7 g/dL *LOW* (03/15/16 4:13 AM) Hgb [12.0-16.0 g/dL] 29.6 % *LOW* (03/17/16 6:01 AM) 26.0 % *LOW* (03/16/16 7:51 AM) 32.7 % *LOW* (03/15/16 4:13 AM) Hct [36.0-48.0 %] 84.5 fL (03/17/16 6:01 AM) 85.0 fL (03/16/16 7:51 AM) 84.4 fL (03/15/16 4:13 AM) MCV [80.0-98.0 fL] 28.0 pg (03/17/16 6:01 AM) 27.8 pg (03/16/16 7:51 AM) 27.7 pg (03/15/16 4:13 AM) MCH [27.0-31.0 pg] 33.1 g/dL (03/17/16 6:01 AM) 32.7 g/dL (03/16/16 7:51 AM) 32.9 g/dL (03/15/16 4:13 AM) MCHC [32.0-36.0 g/dL] 14.5 % (03/17/16 6:01 AM) 14.6 % *HI* (03/16/16 7:51 AM) 14.6 % *HI* (03/15/16 4:13 AM) RDW [11.5-14.5 %] 155 K/CMM (03/17/16 6:01 AM) 90 K/CMM *LOW* (03/16/16 7:51 AM) 141 K/CMM (03/15/16 4:13 AM) Platelet [133-450 K/CMM] 8.3 fL (03/17/16 6:01 AM) 8.9 fL (03/16/16 7:51 AM) 8.6 fL (03/15/16 4:13 AM) MPV [7.4-10.4 fL] 74.3 % (03/17/16 6:01 AM) 76.9 % *HI* (03/16/16 7:51 AM) 67.9 % (03/15/16 4:13 AM) Segs [45.0-75.0 %] 18.3 % *LOW* (03/17/16 6:01 AM) 15.9 % *LOW* (03/16/16 7:51 AM) 24.5 % (03/15/16 4:13 AM) Lymphocytes [20.0-40.0 %] 5.9 % (03/17/16 6:01 AM) 6.2 % (03/16/16 7:51 AM) 5.2 % (03/15/16 4:13 AM) Monocytes [2.0-12.0 %] 1.2 % (03/17/16 6:01 AM) 0.8 % (03/16/16 7:51 AM) 1.8 % (03/15/16 4:13 AM) Eosinophils [0.0-4.0 %] 0.3 % (03/17/16 6:01 AM) 0.2 % (03/16/16 7:51 AM) 0.6 % (03/15/16 4:13 AM) Basophils [0.0-1.0 %] 6.6 K/CMM (03/17/16 6:01 AM) 5.1 K/CMM (03/16/16 7:51 AM) 5.6 K/CMM (03/15/16 4:13 AM) Segs-Bands # [1.5-8.1 K/CMM] 1.6 K/CMM (03/17/16 6:01 AM) 1.0 K/CMM (03/16/16 7:51 AM) 2.0 K/CMM (03/15/16 4:13 AM) Lymphocytes # [1.0-5.5 K/CMM] 0.5 K/CMM (03/17/16 6:01 AM) 0.4 K/CMM (03/16/16 7:51 AM) 0.4 K/CMM (03/15/16 4:13 AM) Monocytes # [0.0-0.8 K/CMM] 0.1 K/CMM (03/17/16 6:01 AM) 0.1 K/CMM (03/16/16 7:51 AM) 0.1 K/CMM (03/15/16 4:13 AM) Eosinophils # [0.0-0.5 K/CMM] Normal (03/16/16 7:51 AM) RBC Morph Normal (03/16/16 7:51 AM) Plt Morph Immunizations Not Given Vaccine Date Status Refusal Reason diphtheria/pertussis, acel/tetanus adult 03/16/16 Not Given Parent Or Guardian Refuses Procedures Procedure Date Related Diagnosis Body Site Stent placement1 2012 Lithotripsy 1kidney stent placed for stones Social History Social History Type Response Substance Abuse 1 Alcohol 2 Smoking Status Never smoker; Exposure to Tobacco Smoke None; Cigarette Smoking Last 365 Days No; Reg Smoking Cessation Counseling No 1denies 2denies Assessment and Plan Extracted from: Title: OB Inpatient Author: Rodriguez Patel MD Date: 03/16/16 Progress Note * Impression and Plan POD DAy #1 Platelets at 88
[2018-02-18] MEDS ORDERED: MORPHINE SULFATE 2 MG/ML SYR IV STA (22:23)
[2018-02-18] MEDS ORDERED: ONDANSETRON HCL INJ 2 MG/ML VIAL IV STA (22:23)
[2018-02-18] MEDS ORDERED: KETOROLAC TROMETHAMINE 30 MG/ML VIAL IV STA (22:23)
[2018-02-18] MEDS ORDERED: SODIUM CHLORIDE 0.9% 1000ML 1,000 ML IV STA (22:23)
[2018-02-18 22:45] LABS: BASOPHILS % 0.3 % (0.0-1.0); EOSINOPHILS # (AUTO) 0.3 (0.0-0.4); EOSINOPHILS % 4.5 % (0.0-6.0); HEMATOCRIT 40.5 % (34.2-44.1); HEMOGLOBIN 13.3 g/dL (12.0-16.0); LYMPHOCYTES # (AUTO) 2.6 (1.0-3.2); LYMPHOCYTES % 43.8 % (18.0-39.1); MEAN CORPUSCULAR HEMOGLOBIN 29.6 pg (28-32); MEAN CORPUSCULAR HGB CONC 32.8 g/dL (31-35); MEAN CORPUSCULAR VOLUME 90.2 fL (81-99); MONOCYTES # (AUTO) 0.3 (0.2-0.8); MONOCYTES % 5.7 % (4.4-11.3); NEUTROPHILS # (AUTO) 2.7 (2.1-6.9); NEUTROPHILS % 45.4 % (38.7-80.0); PLATELET COUNT 206 x10e3/uL (140-360); RED BLOOD COUNT 4.49 x10e6/uL (3.6-5.1); RED CELL DISTRIBUTION WIDTH 12.3 % (11.7-14.4)
[2018-02-18 22:52] LABS: CLARITY,URINE SL CLOUDY (CLEAR); COLOR,URINE YELLOW (YELLOW)
[2018-02-18 22:53] LABS: BILIRUBIN,URINE NEGATIVE (NEGATIVE); KETONES,URINE NEGATIVE (NEGATIVE); LEUKOCYTE ESTERASE ,URINE TRACE (NEGATIVE); NITRITE,URINE NEGATIVE (NEGATIVE); PREGNANCY TEST, URINE NEGATIVE (NEGATIVE); PROTEIN,URINE DIPSTICK NEGATIVE (NEGATIVE); URINE UROBILINOGEN 0.2 mg/dL (0.2 - 1)
[2018-02-18 23:05] LABS: BACTERIA,URINE MANY /HPF; EPITHELIAL CELLS,URINE FEW /LPF
[2018-02-18 23:06] LABS: ALANINE AMINOTRANSFERASE 23 IU/L (0-55); ALBUMIN 3.7 g/dL (3.5-5.0); ALBUMIN/GLOBULIN RATIO 0.9 (0.8-2.0); ALKALINE PHOSPHATASE 87 IU/L (40-150); ANION GAP 15.8 mmol/L (8-16); BLOOD UREA NITROGEN 14 mg/dL (7-26); BUN/CREATININE RATIO 17 (6-25); CALCIUM 9.6 mg/dL (8.4-10.2); CARBON DIOXIDE 22 mmol/L (22-29); CHLORIDE 107 mmol/L (98-107); CREATININE, SERUM 0.81 mg/dL (0.57-1.11); EST GLOMERULAR FILTRATION RATE > 60 ML/MIN (60-); GLUCOSE 101 mg/dL (74-118); MAGNESIUM 2.6 MG/DL (1.3-2.1); POTASSIUM 3.8 mmol/L (3.5-5.1); SODIUM 141 mmol/L (136-145)
--- NOTE | 2018-02-19 00:09 | Diagnostic Imaging Report ---
EXAM: CT ABDOMEN/PELVIS WO DATE: 02/18/2018 10:23 PM INDICATION: ^Stone Protocol, LLQ PAIN H/O KIDNEY STONES OVAR CYSTS ^[id number] ^2310 ^Y COMPARISON: 04/22/2017 TECHNIQUE: The abdomen and pelvis were scanned using a multidetector helical scanner. Coronal and sagittal reformations were obtained. CT low dose techniques were utilized, as applicable. IV Contrast: 0 ml Isovue 300/370 FINDINGS: Lack of IV contrast decreases sensitivity in evaluating abdominal and pelvic organs. LOWER THORAX: No consolidations LIVER/BILIARY: No masses. No ductal dilatation. GALLBLADDER: Unremarkable SPLEEN: Unremarkable PANCREAS: Unremarkable ADRENALS: No nodules KIDNEYS: No stones. No hydronephrosis. GI TRACT: No wall thickening or evidence of obstruction. Normal appendix. VESSELS: Unremarkable PERITONEUM/RETROPERITONEUM: No free air or fluid LYMPH NODES: No lymphadenopathy REPRODUCTIVE ORGANS/BLADDER: Unremarkable SOFT TISSUES: Tiny umbilical fat-containing hernia BONES: No suspicious bone lesions. IMPRESSION: No nephroureterolithiasis or other acute abnormality. Signed by: Dr Danielle Sheets MD on 02/19/2018 12:06 AM
[2018-02-19] MEDS ORDERED: CEFTRIAXONE SOD 1 GM VIAL IV STA (00:53)
[2018-02-19] MEDS ORDERED: KETOROLAC TROMETHAMINE 30 MG/ML VIAL ONE (01:47)
[2018-02-19] MEDS ORDERED: MORPHINE SULFATE 2 MG/ML SYR ONE (01:54)
[2018-02-19] MEDS ORDERED: ONDANSETRON HCL INJ 2 MG/ML VIAL ONE (01:54)
== END 2018-02-19 03:05 | disposition home or self-care (01) ==
LOC: ER 21:58
DX: R10.30 Lower abdominal pain, unspecified (principal); R11.0 Nausea; N30.91 Cystitis, unspecified with hematuria
CPT/HCPCS: 36415; 74176; 80053; 81001; 81025; 83735; 85025; 87086; 99284; J0696; J1885; J2270; J2405

== ENCOUNTER 2018-11-30 22:57 | Emergency (ER) | payer BC ==
[~2018-11-30] VITALS: Ht 154.9 cm; Wt 99.8 kg
--- OUTSIDE RECORDS SUMMARY | 2018-11-30 23:02 | XMS REPORT | Continuity of Care Document ---
Author Author Arimaz Address Unknown Phone Unavailable Care Team Providers Care Hammerer Helper Name Role Phone [employer] Unavailable Unavailable Problems Problem Status Onset Date Classification Date Reported Comments Source Discharge Diagnosis: 03/07/2016 03/10/2016 [facility] Discharge Diagnosis: Acute lower UTI 03/07/2016 03/10/2016 [facility] ABDOMINAL PAIN Active 03/07/2016 [facility] Discharge Diagnosis: Labor, false , antepartum 02/13/2016 02/16/2016 [facility] Discharge Diagnosis: Acute vaginitis 02/13/2016 02/16/2016 [facility] BACK PAIN Active 02/13/2016 [facility] Discharge Diagnosis: Lightheadedness 12/26/2015 12/29/2015 [facility] S.O.B Active 12/26/2015 [facility] Discharge Diagnosis: Acute cystitis during in second trimester 12/18/2015 12/21/2015 [facility] Discharge Diagnosis: 26 weeks gestation of 12/18/2015 12/21/2015 [facility] Resolved 12/18/2015 Problem 03/20/2016 [facility] PRESSURE Active 12/18/2015 [facility] Active 06/05/2015 [facility] INDUCTION Active 06/05/2015 [facility] SHORTNESS OF BREATH Active 05/08/2013 [facility] Kidney stone Resolved Problem 03/20/2016 [facility] FAILED INDUCTION OF LABOR, UNSPECIFIED Active [facility] Medications Medication Details Route Status Patient Instructions Ordering Provider Order Date Source Acetaminophen 300 MG / Codeine Phosphate 30 MG Oral Tablet [Tylenol with Codeine #3] 1 tab, PO, Q4H, PRN Pain, X 7 day, # 42 tab, 0 Refill(s) Active 03/16/2016 [facility] Multivitamins oral tablet 1 tab, Route: PO, Drug Form: TAB, Dosing Weight 109.091, kg, Daily, Start date: 03/16/16 9:00:00 [employer]ROSION ENGINEER, Duration: 30 day, Stop date: 04/14/16 9:00:00 CORROSION ENGINEER No Longer Active 03/16/2016 [facility] Unasyn 1.5 gm, 1 ea, Route: IVPB, ABXQ8H, Dosing Weight 109.091, kg, Start date: 03/16/16 1:00:00 CORROSION ENGINEER, Duration: 2 doses or times, Stop date: 03/16/16 9:00:00 CSTNotes: Dosing based on Ampicillin component (Same as: Unasyn) Inactive 03/16/2016 [facility] Ibuprofen 600 mg, 1 tab, Route: PO, Drug form: TAB, Q6H, Dosing Weight 109.091, kg, Start date: 03/16/16 0:00:00 CORROSION ENGINEER, Duration: 30 day, Stop date: 04/14/16 18:00:00 CSTNotes: (Same as: Motrin) "Do Not Crush" Take with food. No Longer Active 03/16/2016 [facility] Tylenol 1,000 mg, 100 mL, Route: IVPB, Drug form: INJ, Q6H, Dosing Weight 109.091, kg, Start date: 03/16/16 0:00:00 CORROSION ENGINEER, Duration: 30 day, Stop date: 04/14/16 18:00:00 CSTNotes: Infuse over 15 minutes Do not e xceed 4gm/day of acetaminophen MEDICATION WASTE Product Size: 1000 mg Product Wasted: ___ mg Inactive 03/16/2016 [facility] Lactated Ringers 1,000 mL 1,000 mL, Rate: 100 ml/hr, Infuse over: 10 hr, Route: IV, Dosing Weight 109.091 kg, Total Volume: 1,000, Start date: 03/15/16 22:58:00 CORROSION ENGINEER, Duration: 30 day, Stop date: 04/14/16 22:57:00 CORROSION ENGINEER No Longer Active 03/16/2016 [facility] Oxytocin 0.06 UNT/ML Injectable Solution 30 unit, 500 mL, Rate: 42 ml/hr, Infuse over: 11.9 hr, Dosing Weight 109.091, kg, Route: IV, Total Volume: 500 mL, Start date: 03/15/16 22:58:00 CORROSION ENGINEER, Duration: 1 doses or times, Stop date: 03/16/16 10:51:00 CORROSION ENGINEER, Replace Every: 11.9 hrNotes: (Same as: OXYTOCIN-D5LR) No Longer Active 03/16/2016 [facility] lanolin topical cream 1 appl, Route: TOP, PRN, Drug form: CRM, PRN Other -See Comment, Start date: 03/15/16 22:58:00 CORROSION ENGINEER, Duration: 30 day, Stop date: 04/14/16 22:57:00 CORROSION ENGINEER No Longer Active 03/16/2016 [facility] Bisacodyl 10 mg, 1 supp, Route: ND, Drug form: SUPP, PRN, Dosing Weight 109.091, kg, PRN Other -See Comment, Start date: 03/15/16 22:58:00 CORROSION ENGINEER, Duration: 30 day, Stop date: 04/14/16 22:57:00 CSTNotes: (Same As: Dulcolax, Bisco-Lax) No Longer Active 03/16/2016 [facility] Acetaminophen 325 MG / Hydrocodone Bitartrate 5 MG Oral Tablet 1 tab, Route: PO, Drug Form: TAB, Dosing Weight 109.091, kg, Q4H, PRN Pain Score 4-6, Start date: 03/15/16 22:58:00 CORROSION ENGINEER, Duration: 30 day, Stop date: 04/14/16 22:57:00 CSTNotes: (Same as: Eccles 325/5) Do not exceed 4gm/day of acetaminophen. No Longer Active 03/16/2016 [facility] Acetaminophen 325 MG / Hydrocodone Bitartrate 10 MG Oral Tablet 1 tab, Route: PO, Drug Form: TAB, Dosing Weight 109.091, kg, Q4H, PRN Pain Score 7-10, Start date: 03/15/16 22:58:00 CORROSION ENGINEER, Duration: 30 day, Stop date: 04/14/16 22:57:00 CSTNotes: Do not exceed 4gm/day of acetaminophen. (Same as: Eccles 325/10) No Longer Active 03/16/2016 [facility] zolpidem 5 mg, 1 tab, Route: PO, Drug form: TAB, Bedtime, Dosing Weight 109.091, kg, PRN Insomnia, Start date: 03/15/16 22:58:00 CORROSION ENGINEER, Duration: 30 day, Stop date: 04/14/16 22:57:00 CSTNotes: (Same As: Ambien) No Longer Active 03/16/2016 [facility] Benzocaine / Menthol 1 lozenge, Route: PO, Drug Form: ROEL, Dosing Weight 109.091, kg, PRN, PRN Sore Throat, Start date: 03/15/16 22:58:00 CORROSION ENGINEER, Duration: 30 day, Stop date: 04/14/16 22:57:00 CSTNotes: Same as: Cepacol No Longer Active 03/16/2016 [facility] Acetaminophen 650 mg, 2 tab, Route: PO, Drug form: TAB, Q4H, Dosing Weight 109.091, kg, PRN Other -See Comment, Start date: 03/15/16 22:58:00 CORROSION ENGINEER, Duration: 30 day, Stop date: 04/14/16 22:57:00 CSTNotes: Do not ex ceed 4 gm/day. (Same as: Tylenol) No Longer Active 03/16/2016 [facility] Simethicone 160 mg, 2 tab, Route: PO, Drug form: CHEWTAB, Q8H, Dosing Weight 109.091, kg, PRN Gas, Start date: 03/15/16 22:58:00 CORROSION ENGINEER, Duration: 30 day, Stop date: 04/14/16 22:57:00 CSTNotes: (Same as: Mylicon) No Longer Active 03/16/2016 [facility] Naloxone 0.4 mg, 1 mL, Route: IVP, Drug form: INJ, ONCALL, Dosing Weight 109.091, kg, Start date: 03/15/16 20:00:00 CORROSION ENGINEER, Duration: 24 hr, Stop date: 03/16/16 19:59:00 CSTNotes: Same as Narcan No Longer Active 03/16/2016 [facility] Hydrocodone Bitartrate 7.5 MG / Ibuprofen 200 MG Oral Tablet [Vicoprofen] 1 tab, Route: PO, Drug Form: TAB, Dosing Weight 109.091, kg, Q6H, PRN Pain Score 7-10, Start date: 03/15/16 19:14:00 CORROSION ENGINEER, Duration: 24 hr, Stop date: 03/16/16 19:13:00 CSTNotes: (Same as: Vicoprofen) No Longer Active 03/16/2016 [facility] Ondansetron 4 mg, 2 mL, Route: IVP, Drug form: INJ, Q6H, Dosing Weight 109.091, kg, PRN Nausea & Vomiting, Start date: 03/15/16 19:14:00 CORROSION ENGINEER, Duration: 24 hr, Stop date: 03/16/16 19:13:00 CSTNotes: (Same as: Zofran) MEDICATION WASTE Product Size: 4 mg Product Wasted: ___ mg No Longer Active 03/16/2016 [facility] Hydromorphone 0.3 mg, 0.3 mL, Route: IVP, Drug form: INJ, Q4H, Dosing Weight 109.091, kg, PRN Pain Score 7-10, Start date: 03/15/16 19:14:00 CORROSION ENGINEER, Duration: 30 day, Stop date: 04/14/16 19:13:00 CORROSION ENGINEER No Longer Active 03/16/2016 [facility] Naloxone 0.1 mg, 0.25 mL, Route: SUB-Q, Drug form: INJ, Q6H, Dosing Weight 109.091, kg, PRN Itching, Start date: 03/15/16 19:14:00 CORROSION ENGINEER, Duration: 24 hr, Stop date: 03/16/16 19:13:00 CSTNotes: Same as Narcan No Longer Active 03/16/2016 [facility] Diphenhydramine 12.5 mg, 0.5 tab, Route: PO, Drug form: TAB, Q6H, Dosing Weight 109.091, kg, PRN Itching, Start date: 03/15/16 19:14:00 CORROSION ENGINEER, Duration: 30 day, Stop date: 04/14/16 19:13:00 CORROSION ENGINEER No Longer Active 03/16/2016 [facility] Promethazine 6.25 mg, 0.25 mL, Route: IVPB, Q6H, Dosing Weight 109.091, kg, PRN Nausea & Vomiting, Start date: 03/15/16 19:14:00 CORROSION ENGINEER, Duration: 24 hr, Stop date: 03/16/16 19:13:00 CSTNotes: Do not give IV push. (Same as: Phenergan) No Longer Active 03/16/2016 [facility] Meperidine 12.5 mg, 0.25 mL, Route: IVP, Drug form: INJ, ONCE, Dosing Weight 109.091, kg, Start date: 03/15/16 19:14:00 CORROSION ENGINEER, Stop date: 03/15/16 19:14:00 CSTNotes: (Same as: Demerol) "Use Precaution in Elderly, Seizure disorders, and Renal impairment" No Longer Active 03/16/2016 [facility] Nalbuphine 2 mg, 0.2 mL, Route: IVP, Drug form: INJ, Q2H, Dosing Weight 109.091, kg, PRN Itching, Start date: 03/15/16 19:14:00 CORROSION ENGINEER, Duration: 5 doses or times, Stop date: Limited # of timesNotes: (Same As: Smita somers) No Longer Active 03/16/2016 [facility] Oxycodone Hydrochloride 1 MG/ML Oral Solution 5 mg, 5 mL, Route: NG, Drug form: LIQ, Q4H, Dosing Weight 109.091, kg, PRN Pain Score 4-6, Start date: 03/15/16 19:14:00 CORROSION ENGINEER, Stop date: 04/14/16 19:13:00 CSTNotes: (Same as: 'Roxicodone) No Longer Active 03/16/2016 [facility] Oxycodone Hydrochloride 5 MG Oral Tablet 5 mg, 1 tab, Route: PO, Drug form: TAB, Q4H, Dosing Weight 109.091, kg, PRN Pain Score 4-6, Start date: 03/15/16 19:14:00 CORROSION ENGINEER, Duration: 30 day, Stop date: 04/14/16 19:13:00 CSTNotes: (Same as: Roxicodone) No Longer Active 03/16/2016 [facility] Acetaminophen 1,000 mg, 2 tab, Route: PO, Drug form: TAB, Q6Hnow, Dosing Weight 109.091, kg, Priority: NOW, Start date: 03/15/16 19:14:00 CORROSION ENGINEER, Duration: 24 hr, Stop date: 03/16/16 13:14:00 CSTNotes: Max acetaminophen 4000 mg/day (4 gm/day). (Same as: Tylenol Extra Strength) Inactive 03/16/2016 [facility] Ketorolac 30 mg, 1 mL, Route: IVP, Drug form: INJ, Q6H, Dosing Weight 109.091, kg, PRN Pain Score 4-6, Start date: 03/15/16 19:14:00 CORROSION ENGINEER, Duration: 24 hr, Stop date: 03/16/16 19:13:00 CSTNotes: (Same as:Toradol) IV bolus must be given >15 seconds. Give IM administration slowly and deeply into the muscle. Not for use > 4 days MEDICATION WASTE Product Size: 30 mg Product Wasted: ___ mg No Longer Active 03/16/2016 [facility] ondansetron (ANES) Route: IV, Drug form: INJ, ONCE, Stop date: 03/15/16 17:45:00 CORROSION ENGINEER Inactive 03/15/2016 [facility] hydromorphone (ANES) Route: EPIDURAL, Drug form: INJ, ONCE, Stop date: 03/15/16 17:45:00 CORROSION ENGINEER Inactive 03/15/2016 [facility] ceFAZolin (ANES) Route: IV, Drug form: INJ, ONCE, Stop date: 03/15/16 17:36:00 CORROSION ENGINEER Inactive 03/15/2016 [facility] oxytocin (ANES) (ANES) Route: IV, Drug form: SOLN, Start date: 03/15/16 17:12:00 CORROSION ENGINEER, Stop date: 03/15/16 18:12:00 CORROSION ENGINEER Inactive 03/15/2016 [facility] LR 1000 mL INJ (ANES) Route: IV, Total Volume: 1,000, Start date: 03/15/16 16:52:00 CORROSION ENGINEER, Stop date: 03/15/16 17:52:00 CORROSION ENGINEER Inactive 03/15/2016 [facility] Cefazolin 3 gm, Route: IVPB, ONCE, Dosing Weight 109.091, kg, Start date: 03/15/16 16:19:00 CORROSION ENGINEER, Duration: 1 doses or times, Stop date: 03/15/16 16:19:00 CORROSION ENGINEER, PROCUREMENT ENGINEER Surgical Prophylaxis Only; For patients > 100 kgNotes: (Same As: Ancef, Kefzol) MEDICATION WASTE Product Size: 1000 mg Product Wasted: ___ mg Inactive 03/15/2016 [facility] Morphine 2 mg, 1 mL, Route: IVP, Drug form: INJ, Q2H, Dosing Weight 109.091, kg, PRN Pain Score 7-10, Start date: 03/15/16 16:18:00 CORROSION ENGINEER, Duration: 30 day, Stop date: 04/14/16 16:17:00 CSTNotes: (Same as:MORPhine Sulfate) No Longer Active 03/15/2016 [facility] Ondansetron 4 mg, Route: IVP, Q8H, Dosing Weight 109.091, kg, PRN Nausea & Vomiting, Start date: 03/15/16 16:18:00 CORROSION ENGINEER, Duration: 30 day, Stop date: 04/14/16 16:17:00 CORROSION ENGINEER Inactive 03/15/2016 [facility] Metoclopramide 10 mg, Route: IVP, Drug form: INJ, Q6H, Dosing Weight 109.091, kg, PRN Nausea & Vomiting, Start date: 03/15/16 16:18:00 CORROSION ENGINEER, Duration: 30 day, Stop date: 04/14/16 16:17:00 CORROSION ENGINEER Inactive 03/15/2016 [facility] Promethazine 12.5 mg, 0.5 mL, Route: IM, Drug form: INJ, Q4H, Dosing Weight 109.091, kg, PRN Nausea & Vomiting, Start date: 03/15/16 16:18:00 CORROSION ENGINEER, Duration: 30 day, Stop date: 04/14/16 16:17:00 CSTNotes: Do not g nayan IV push. (Same as: Phenergan) No Longer Active 03/15/2016 [facility] Misoprostol 1,000 microgram, 5 tab, Route: ND, Drug form: TAB, ONCALL, Dosing Weight 109.091, kg, Start date: 03/15/16 4:00:00 CORROSION ENGINEER, Duration: 1 doses or timesNotes: (Same as:Cytotec) Take with food Inactive 03/15/2016 [facility] Methylergonovine 0.2 mg, 1 mL, Route: IM, Drug form: INJ, ONCALL, Dosing Weight 109.091, kg, Start date: 03/15/16 4:00:00 CORROSION ENGINEER, Duration: 30 day, Stop date: 04/14/16 3:59:00 CSTNotes: (Same as:Methergine) Inactive 03/15/2016 [facility] Carboprost 250 microgram, 1 mL, Route: IM, Drug form: INJ, ONCALL, Dosing Weight 109.091, kg, Start date: 03/15/16 4:00:00 CORROSION ENGINEER, Duration: 30 day, Stop date: 04/14/16 3:59:00 CSTNotes: (Same As: Hemabate) Inactive 03/15/2016 [facility] Citric Acid / sodium citrate 30 mL, Route: PO, Drug Form: SOLN, Dosing Weight 109.091, kg, ONCALL, Start date: 03/15/16 4:00:00 CORROSION ENGINEER, Duration: 30 day, Stop date: 04/14/16 3:59:00 CSTNotes: (Same As: Bicitra) Inactive 03/15/2016 [facility] Famotidine 20 mg, 2 mL, Route: IVP, Drug form: INJ, ONCALL, Dosing Weight 109.091, kg, Start date: 03/15/16 4:00:00 CORROSION ENGINEER, Duration: 30 day, Stop date: 04/14/16 3:59:00 CSTNotes: (Same as: Pepcid) Can be dilute in 5-10cc NS IVP: Slow IV push over at least 2 minutes. Inactive 03/15/2016 [facility] Butorphanol 2 mg, 2 mL, Route: IVP, Drug form: INJ, Q2H, Dosing Weight 109.091, kg, PRN Pain Score 7-10, Start date: 03/15/16 3:41:00 CORROSION ENGINEER, Duration: 30 day, Stop date: 04/14/16 3:40:00 CSTNotes: (Same As: Stadol) Inactive 03/15/2016 [facility] Terbutaline 0.25 mg, 0.25 mL, Route: SUB-Q, Drug form: INJ, PRN, Dosing Weight 109.091, kg, PRN Other -See Comment, Start date: 03/15/16 3:41:00 CORROSION ENGINEER, Duration: 1 doses or times, Stop date: Limited # of timesNotes: DO NOT USE IN PROCUREMENT ENGINEER AREA (Same As: Brethine) Inactive 03/15/2016 [facility] Lidocaine Hydrochloride 10 MG/ML Injectable Solution 200 mg, 20 mL, Route: PERCUT, Drug Form: INJ, Dosing Weight 109.091, kg, PRN, PRN Other -See Comment, Start date: 03/15/16 3:41:00 CORROSION ENGINEER, Duration: 1 doses or times, Stop date: Limited # of timesNotes: (Same as: Xylocaine) Inactive 03/15/2016 [facility] Ibuprofen 600 mg, 1 tab, Route: PO, Drug form: TAB, Q6H, Dosing Weight 109.091, kg, PRN Other -See Comment, Start date: 03/15/16 3:41:00 CORROSION ENGINEER, Duration: 30 day, Stop date: 04/14/16 3:40:00 CSTNotes: (Same as: Motrin) "Do Not Crush" Take with food. Inactive 03/15/2016 [facility] Acetaminophen 325 MG / Hydrocodone Bitartrate 5 MG Oral Tablet 1 tab, Route: PO, Drug Form: TAB, Dosing Weight 109.091, kg, Q4H, PRN Pain Score 4-6, Start date: 03/15/16 3:41:00 CORROSION ENGINEER, Duration: 30 day, Stop date: 04/14/16 3:40:00 CSTNotes: (Same as: Eccles 325/5) Do not exceed 4gm/day of acetaminophen. Inactive 03/15/2016 [facility] Metoclopramide 10 mg, 2 mL, Route: IVP, Drug form: INJ, Q6H, Dosing Weight 109.091, kg, PRN Nausea & Vomiting, Start date: 03/15/16 3:41:00 CORROSION ENGINEER, Duration: 30 day, Stop date: 04/14/16 3:40:00 CSTNotes: (Same as: Reglan) Inactive 03/15/2016 [facility] Ondansetron 4 mg, 2 mL, Route: IVP, Drug form: INJ, Q8H, Dosing Weight 109.091, kg, PRN Nausea & Vomiting, Start date: 03/15/16 3:41:00 CORROSION ENGINEER, Duration: 30 day, Stop date: 04/14/16 3:40:00 CSTNotes: (Same as: Zofran) MEDICATION WASTE Product Size: 4 mg Product Wasted: ___ mg Inactive 03/15/2016 [facility] Oxytocin 0.06 UNT/ML Injectable Solution 30 unit, 500 mL, Rate: 42 ml/hr, Infuse over: 11.9 hr, Dosing Weight 109.091, kg, Route: IV, Total Volume: 500 mL, Start date: 03/15/16 3:41:00 CORROSION ENGINEER, Duration: 2 day, Stop date: 03/17/16 3:40:00 CORROSION ENGINEER, Replace Every: 11.9 hrNotes: (Same as: OXYTOCIN- D5LR) Inactive 03/15/2016 [facility] Calcium Chloride 0.0014 MEQ/ML / Potassium Chloride 0.004 MEQ/ML / Sodium Chloride 0.103 MEQ/ML / Sodium Lactate 0.028 MEQ/ML Injectable Solution 1,000 mL, 1,000 ml/hr, Infuse Over: 1 hr, Route: IV, 1,000, Drug form: INJ, ONCE, Dosing Weight 109.091 kg, Start date: 03/15/16 3:41:00 CORROSION ENGINEER, Stop date: 03/15/16 3:41:00 CORROSION ENGINEER, Bolus for regional anesthesia per unit protocol Inactive 03/15/2016 [facility] Lactated Ringers 1,000 mL 1,000 mL, Rate: 125 ml/hr, Infuse over: 8 hr, Route: IV, Dosing Weight 109.091 kg, Total Volume: 1,000, Start date: 03/15/16 3:41:00 CORROSION ENGINEER, Duration: 30 day, Stop date: 04/14/16 3:40:00 CORROSION ENGINEER Inactive 03/15/2016 [facility] Nitrofurantoin 100 MG Oral Capsule [Macrobid] 100 mg=1 cap, PO, BID, X 7 day, # 14 cap, 0 Refill(s) Active 03/08/2016 [facility] Rocephin 1 gm, Route: IM, Drug form: PDR/INJ, ONCE, Dosing Weight 107.727, kg, Priority: STAT, Start date: 03/07/16 20:45:00 CORROSION ENGINEER, Stop date: 03/07/16 20:45:00 CSTNotes: (Same As: Rocephin). Use with 100 mL NS and infuse over 30 min MEDICATION WASTE Product Size: 1000 mg Product Wasted: ___ mg Inactive 03/08/2016 [facility] Metronidazole 0.0075 MG/MG Vaginal Gel [MetroGel] 1 appl, VAG, Bedtime, X 5 day, # 1 ea, 0 Refill(s) Active 02/14/2016 [facility] Lactated Ringers 1,000 mL 1,000 mL, Rate: 125 ml/hr, Infuse over: 8 hr, Route: IV, Dosing Weight 104.091 kg, Total Volume: 1,000, Start date: 02/13/16 20:10:00 CDT, Duration: 30 day, Stop date: 03/14/16 20:09:00 CORROSION ENGINEER No Longer Active 02/14/2016 [facility] Calcium Chloride 0.0014 MEQ/ML / Potassium Chloride 0.004 MEQ/ML / Sodium Chloride 0.103 MEQ/ML / Sodium Lactate 0.028 MEQ/ML Injectable Solution 1,000 mL, 1,000 ml/hr, Infuse Over: 1 hr, Route: IV, ONCE, Priority: STAT, Dosing Weight 104.091 kg, Start date: 02/13/16 20:10:00 CDT, Duration: 1 doses or times, Stop date: 02/13/16 20:10:00 CDT Inactive 02/14/2016 [facility] Phenergan 12.5 mg oral tablet 12.5 mg=1 tab, PO, Q6H, PRN Nausea & Vomiting, X 5 day, # 20 tab, 0 Refill(s) Active 12/26/2015 [facility] Nitrofurantoin 100 MG Oral Capsule [Macrobid] 100 mg=1 cap, PO, BID, X 7 day, # 14 cap, 0 Refill(s) Active 12/26/2015 [facility] Sodium Chloride 0.154 MEQ/ML Injectable Solution 500 mL, 500 ml/hr, Infuse Over: 1 hr, Route: IV, 500, Drug form: INJ, ONCE, Priority: STAT, Dosing Weight 97.727 kg, Start date: 12/26/15 15:31:00 CDT, Duration: 1 doses or times, Stop date: 12/26/15 15:31:00 CDT Inactive 12/26/2015 [facility] Nitrofurantoin 100 MG Oral Capsule [Macrobid] 100 mg=1 cap, PO, BID, X 7 day, # 14 cap, 0 Refill(s) Active 12/18/2015 [facility] 1 Plus 1 oral tablet 1 tab, PO, Daily, # 30 tab, 0 Refill(s) Active 12/18/2015 [facility] famotidine 20 mg oral tablet 20 mg=1 tab, PO, BID, # 30 tab, 0 Refill(s) Active 05/11/2013 [facility] Carafate 1 g/10 mL oral suspension 1 gm=10 ml, PO, QID- Before Meals, # 400 ml, 0 Refill(s) Active [place] 05/11/2013 [facility] famotidine 20 mg, Route: PO, ONCE, Dosing Weight 90.909, kg, Priority: STAT, Start date: 05/11/13 2:40:00, Stop date: 05/11/13 2:40:00 Inactive [place] 05/11/2013 [facility] Maalox Advanced Regular Strength SUSP 30 mL, Route: PO, Drug Form: SUSP, Dosing Weight 90.909, kg, ONCE, STAT, Start date: 05/11/13 2:40:00, Stop date: 05/11/13 2:40:00 Inactive [place] 05/11/2013 [facility] morphine Sulfate 4 mg, Route: IVP, Drug form: INJ, ONCE, Dosing Weight 90.909, kg, Priority: STAT, Start date: 05/11/13 1:41:00, Stop date: 05/11/13 1:41:00 Inactive [place] 05/11/2013 [facility] famotidine 20 mg, 2 mL, Route: IVP, Drug form: INJ, ONCE, Dosing Weight 90.909, kg, Priority: STAT, Start date: 05/11/13 0:15:00, Stop date: 05/11/13 0:15:00(Same as: Pepcid) Can be dilute in 5-10cc NS IVP: Slow IV push over at least 2 minutes. Inactive 05/11/2013 [facility] ondansetron 4 mg, 2 mL, Route: IVP, Drug form: INJ, ONCE, Dosing Weight 90.909, kg, Priority: STAT, Start date: 05/11/13 0:15:00, Stop date: 05/11/13 0:15:00(Same as: Zofran) Inactive 05/11/2013 [facility] Saline Flush 0.9% 5 mL, Route: IVP, Drug Form: INJ, Dosing Weight 90.909, kg, PRN, PRN Line Flush, Start date: 05/11/13 0:15:00, Duration: 24 hr, Stop date: 05/12/13 0:14:00(Same as: BD Posiflush) Inactive [place] 05/11/2013 [facility] Sodium Chloride 0.9% (Bolus) IV 1,000 mL 1,000 mL, Rate: 1,000 ml/hr, Infuse over: 1 hr, Route: IV, Dosing Weight 90.909 kg, Total Volume: 1,000, Priority: STAT, Start date: 05/11/13 0:15:00, Duration: 1 doses or times, Stop date: 05/11/13 1:14:00 Inactive [place] 05/11/2013 [facility] Allergies, Adverse Reactions, Alerts No Known Medication Allergies Immunizations Immunization Date Given Site Status Last Updated Comments Source diphtheria/pertussis, acel/tetanus adult 03/16/2016 Not Given [facility] Results Order Name Results Value Reference Range Date Interpretation Comments Source HEMATOLOGY RBC 3.50 4.20 - 5.40 03/17/2016 [facility] HEMATOLOGY Hgb 9.8 12.0 - 16.0 03/17/2016 [facility] HEMATOLOGY MPV 8.3 7.4 - 10.4 03/17/2016 [facility] HEMATOLOGY Platelet 155 133 - 450 03/17/2016 [facility] RDW 14.5 11.5 - 14.5 03/17/2016 [facility] HEMATOLOGY Hct 29.6 36.0 - 48.0 03/17/2016 [facility] HEMATOLOGY WBC 8.8 3.7 - 10.4 03/17/2016 [facility] MCHC 33.1 32.0 - 36.0 03/17/2016 [facility] MCV 84.5 80.0 - 98.0 03/17/2016 [facility] MCH 28.0 27.0 - 31.0 03/17/2016 [facility] HEMATOLOGY Segs 74.3 45.0 - 75.0 03/17/2016 [facility] Monocytes 5.9 2.0 - 12.0 03/17/2016 [facility] HEMATOLOGY Basophils 0.3 0.0 - 1.0 03/17/2016 [facility] HEMATOLOGY Segs-Bands # 6.6 1.5 - 8.1 03/17/2016 [facility] HEMATOLOGY Eosinophils 1.2 0.0 - 4.0 03/17/2016 [facility] HEMATOLOGY Lymphocytes # 1.6 1.0 - 5.5 03/17/2016 [facility] HEMATOLOGY Lymphocytes 18.3 20.0 - 40.0 03/17/2016 [facility] HEMATOLOGY Monocytes # 0.5 0.0 - 0.8 03/17/2016 [facility] HEMATOLOGY Eosinophils # 0.1 0.0 - 0.5 03/17/2016 [facility] HEMATOLOGY MCV 85.0 80.0 - 98.0 03/16/2016 [facility] Hct 26.0 36.0 - 48.0 03/16/2016 [facility] MCH 27.8 27.0 - 31.0 03/16/2016 [facility] RDW 14.6 11.5 - 14.5 03/16/2016 [facility] MCHC 32.7 32.0 - 36.0 03/16/2016 [facility] MPV 8.9 7.4 - 10.4 03/16/2016 [facility] WBC 6.6 3.7 - 10.4 03/16/2016 [facility] Hgb 8.5 12.0 - 16.0 03/16/2016 [facility] RBC 3.06 4.20 - 5.40 03/16/2016 [facility] Platelet 90 133 - 450 03/16/2016 [facility] HEMATOLOGY Monocytes # 0.4 0.0 - 0.8 03/16/2016 [facility] Eosinophils # 0.1 0.0 - 0.5 03/16/2016 [facility] HEMATOLOGY Segs 76.9 45.0 - 75.0 03/16/2016 [facility] Lymphocytes 15.9 20.0 - 40.0 03/16/2016 [facility] Monocytes 6.2 2.0 - 12.0 03/16/2016 [facility] Eosinophils 0.8 0.0 - 4.0 03/16/2016 [facility] Segs-Bands # 5.1 1.5 - 8.1 03/16/2016 [facility] Basophils 0.2 0.0 - 1.0 03/16/2016 [facility] Lymphocytes # 1.0 1.0 - 5.5 03/16/2016 [facility] RBC Morph Normal (03/16/16 7:51 AM) 03/16/2016 [facility] HEMATOLOGY Plt Morph Normal (03/16/16 7:51 AM) 03/16/2016 [facility] BLOOD BANK RESULTS ABO/Rh A POS 03/15/2016 [facility] BLOOD BANK RESULTS Antibody Scrn Negative (03/15/16 4:42 AM) 03/15/2016 [facility] BLOOD BANK RESULTS Rhig Reqd See Note 1 (03/15/16 4:13 AM) 03/15/2016 Result Comment: 03/15/2016 12:07 [id number]
This patient is not a candidate for Rh(O)D immune globulin. 03/15/2016 12:07 tb [facility] HEMATOLOGY Hgb 10.7 12.0 - 16.0 03/15/2016 [facility] HEMATOLOGY Hct 32.7 36.0 - 48.0 03/15/2016 [facility] HEMATOLOGY MCV 84.4 80.0 - 98.0 03/15/2016 [facility] HEMATOLOGY WBC 8.2 3.7 - 10.4 03/15/2016 [facility] HEMATOLOGY RBC 3.87 4.20 - 5.40 03/15/2016 [facility] HEMATOLOGY RDW 14.6 11.5 - 14.5 03/15/2016 [facility] HEMATOLOGY MPV 8.6 7.4 - 10.4 03/15/2016 [facility] HEMATOLOGY Platelet 141 133 - 450 03/15/2016 [facility] HEMATOLOGY MCH 27.7 27.0 - 31.0 03/15/2016 [facility] MCHC 32.9 32.0 - 36.0 03/15/2016 [facility] HEMATOLOGY Monocytes # 0.4 0.0 - 0.8 03/15/2016 [facility] HEMATOLOGY Eosinophils # 0.1 0.0 - 0.5 03/15/2016 [facility] HEMATOLOGY Monocytes 5.2 2.0 - 12.0 03/15/2016 [facility] HEMATOLOGY Lymphocytes 24.5 20.0 - 40.0 03/15/2016 [facility] HEMATOLOGY Eosinophils 1.8 0.0 - 4.0 03/15/2016 [facility] HEMATOLOGY Segs 67.9 45.0 - 75.0 03/15/2016 [facility] HEMATOLOGY Basophils 0.6 0.0 - 1.0 03/15/2016 [facility] Lymphocytes # 2.0 1.0 - 5.5 03/15/2016 [facility] HEMATOLOGY Segs-Bands # 5.6 1.5 - 8.1 03/15/2016 [facility] IMMUNOLOGY Hep Bs Ag Negative *NA* (03/15/16 4:13 AM) Negative 03/15/2016 [facility] HIV. Negative *NA* (03/15/16 4:13 AM) Negative 03/15/2016 [facility] Treponemal Scr Non Reactive *NA* (03/15/16 4:13 AM) Non Reactive 03/15/2016 [facility] URINE AND STOOL UA WBC 16 0 - 5 03/08/2016 [facility] URINE AND STOOL UA RBC 19 0 - 2 03/08/2016 [facility] URINE AND STOOL UA Sq Epi [...] Negative *NA* (03/07/16 7:18 PM) Negative 03/08/2016 [facility] URINE AND STOOL UA Ketones Negative mg/dL Negative mg/dL 03/08/2016 [facility] URINE AND STOOL UA Leuk Est Large *ABN* (03/07/16 7:18 PM) Negative 03/08/2016 [facility] URINE AND STOOL UA Blood Moderate *ABN* (03/07/16 7:18 PM) Negative 03/08/2016 [facility] URINE AND STOOL UA Nitrite Negative (03/07/16 7:18 PM) Negative 03/08/2016 [facility] URINE AND STOOL UA Turbidity Slight [...] [facility] URINE AND STOOL UA RBC 2 0 - 2 02/14/2016 [facility] URINE AND STOOL UA Amorph Nanci Occasional /HPF None Seen /HPF 02/14/2016 [facility] URINE AND STOOL UA Renal Epi 5 <=0 /LPF 02/14/2016 [facility] URINE AND STOOL [...] [facility] URINE AND STOOL UA WBC 4 0 - 5 02/14/2016 [facility] URINE AND [...] URINE AND STOOL UA Trans Epi 2 <=0 /LPF 12/26/2015 [facility] URINE AND STOOL UA Protein Negative mg/dL Negative mg/dL 12/26/2015 [facility] URINE AND STOOL UA pH 7.0 5.0 - 8.0 12/26/2015 [facility] URINE AND STOOL UA Spec Grav 1.014 <=1.030 12/26/2015 [facility] URINE AND STOOL UA Turbidity Clear (12/26/15 5:01 PM) Clear 12/26/2015 [facility] URINE AND STOOL UA Glucose Negative mg/dL Negative mg/dL 12/26/2015 [facility] URINE AND STOOL UA Leuk Est Large *ABN* (12/26/15 5:01 PM) Negative 12/26/2015 [facility] URINE AND STOOL UA Nitrite Negative (12/26/15 5:01 PM) Negative 12/26/2015 [facility] URINE AND STOOL UA Blood Negative (12/26/15 5:01 PM) Negative 12/26/2015 [facility] URINE AND STOOL UA Bili Negative *NA* (12/26/15 5:01 PM) Negative 12/26/2015 [facility] URINE AND STOOL UA Mucus Few /LPF None Seen /LPF 12/26/2015 [facility] URINE AND STOOL UA Bacteria Occasional /HPF None Seen /HPF 12/26/2015 [facility] URINE AND STOOL UA RBC 1 0 - 2 12/26/2015 [facility] URINE AND STOOL UA WBC 4 0 - 5 12/26/2015 [facility] URINE AND STOOL UA Sq Epi Occasional /LPF Few /LPF 12/26/2015 [facility] URINE CHEM U Preg Positive *ABN* (12/26/15 5:01 PM) Negative 12/26/2015 [facility] CHEM PANEL eGFR 111 12/26/2015 Result Comment: The eGFR is calculated using the modified Chairez equation 0.413 x Height (cm) /Serum Creatinine (mg/dL). [facility] CHEM PANEL Chloride Lvl 106 95 - 109 12/26/2015 [facility] CHEM PANEL Potassium Lvl 3.2 3.5 - 5.1 12/26/2015 [facility] CHEM PANEL Sodium Lvl 139 135 - 145 12/26/2015 [facility] CHEM PANEL Creatinine Lvl 0.57 0.50 - 1.40 12/26/2015 [facility] CHEM PANEL BUN 7 7 - 22 12/26/2015 [facility] CHEM PANEL Bili Total 0.1 0.2 - 1.3 12/26/2015 [facility] CHEM PANEL Alk Phos 110 39 - 136 12/26/2015 [facility] CHEM PANEL AST 10 0 - 37 12/26/2015 [facility] CHEM PANEL ALT 18 0 - 65 12/26/2015 [facility] CHEM PANEL Albumin Lvl 2.5 3.5 - 5.0 12/26/2015 [facility] CHEM PANEL Total Protein 6.9 6.4 - 8.4 12/26/2015 [facility] CHEM PANEL Calcium Lvl 8.8 8.5 - 10.5 12/26/2015 [facility] CHEM PANEL CO2 26 24 - 32 12/26/2015 [facility] CHEM PANEL Glucose Lvl 111 70 - 99 12/26/2015 [facility] CHEM PANEL A/G Ratio 0.6 0.7 - 1.6 12/26/2015 [facility] CHEM PANEL Globulin 4.4 2.7 - 4.2 12/26/2015 [facility] CHEM PANEL B/C Ratio 12 6 - 25 12/26/2015 [facility] CHEM PANEL AGAP 10.2 10.0 - 20.0 12/26/2015 [facility] MCHC 33.5 32.0 - 36.0 12/26/2015 [facility] MCH 29.0 27.0 - 31.0 12/26/2015 [facility] HEMATOLOGY Platelet 155 133 - 450 12/26/2015 [facility] HEMATOLOGY RDW 14.8 11.5 - 14.5 12/26/2015 [facility] HEMATOLOGY MPV 8.0 7.4 - 10.4 12/26/2015 [facility] HEMATOLOGY MCV 86.7 80.0 - 98.0 12/26/2015 [facility] Hct 33.5 36.0 - 48.0 12/26/2015 [facility] HEMATOLOGY WBC 6.7 3.7 - 10.4 12/26/2015 [facility] HEMATOLOGY Hgb 11.2 12.0 - 16.0 12/26/2015 [facility] HEMATOLOGY RBC 3.87 4.20 - 5.40 12/26/2015 [facility] HEMATOLOGY Eosinophils # 0.1 0.0 - 0.5 12/26/2015 [facility] HEMATOLOGY Segs-Bands # 5.2 1.5 - 8.1 12/26/2015 [facility] HEMATOLOGY Basophils 0.2 0.0 - 1.0 12/26/2015 [facility] HEMATOLOGY Eosinophils 1.4 0.0 - 4.0 12/26/2015 [facility] HEMATOLOGY Monocytes # 0.4 0.0 - 0.8 12/26/2015 [facility] HEMATOLOGY Lymphocytes # 1.1 1.0 - 5.5 12/26/2015 [facility] HEMATOLOGY Segs 76.8 45.0 - 75.0 12/26/2015 [facility] HEMATOLOGY Monocytes 5.2 2.0 - 12.0 12/26/2015 [facility] HEMATOLOGY Lymphocytes 16.4 20.0 - 40.0 12/26/2015 [facility] URINE AND STOOL UA Ketones Negative mg/dL Negative mg/dL 12/18/2015 [facility] URINE AND STOOL UA Leuk Est Large *ABN* (12/18/15 1:49 PM) Negative 12/18/2015 [facility] URINE AND STOOL UA Protein Negative mg/dL Negative mg/dL 12/18/2015 [facility] URINE AND STOOL UA pH 7.0 5.0 - 8.0 12/18/2015 [facility] URINE AND STOOL UA Glucose Negative mg/dL Negative mg/dL 12/18/2015 [facility] URINE AND STOOL UA RBC >182 0 - 2 12/18/2015 [facility] URINE AND STOOL UA WBC 4 0 - 5 12/18/2015 [facility] URINE AND STOOL UA Sq Epi Few /LPF Few /LPF 12/18/2015 [facility] URINE AND STOOL UA Urobilinogen <=1.0 mg/dL 0.1 - 1.0 12/18/2015 [facility] URINE AND STOOL UA Color Ltyellow 12/18/2015 [facility] URINE AND STOOL UA Spec Grav 1.011 <=1.030 12/18/2015 [facility] URINE AND STOOL UA Nitrite Negative (12/18/15 1:49 PM) Negative 12/18/2015 [facility] URINE AND STOOL UA Bili Negative *NA* (12/18/15 1:49 PM) Negative 12/18/2015 [facility] URINE AND STOOL UA Blood Large *ABN* (12/18/15 1:49 PM) Negative 12/18/2015 [facility] URINE AND STOOL UA Turbidity Clear (12/18/15 1:49 PM) Clear 12/18/2015 [facility] CHEMISTRY Amylase Lvl 36 25 - 115 05/11/2013 Normal [facility] CHEMISTRY Lipase Lvl 120 73 - 393 05/11/2013 Normal [facility] CHEMISTRY Chloride Lvl 105 95 - 109 05/11/2013 Normal [facility] CHEMISTRY Potassium Lvl 3.5 3.5 - 5.1 05/11/2013 Normal [facility] CHEMISTRY Sodium Lvl 140 135 - 145 05/11/2013 Normal [facility] CHEMISTRY BUN 11 7 - 22 05/11/2013 Normal [facility] CHEMISTRY Creatinine Lvl 0.7 0.5 - 1.4 05/11/2013 Normal [facility] CHEMISTRY Glucose Lvl 104 70 - 99 05/11/2013 [facility] <sup>2</sup>Interpretive Data: Adult reference range values reflect the clinical guidelines
of the [employer]. [facility] CHEMISTRY ASPARTATE TRANSAMINASE 16 0 - 37 05/11/2013 Normal [facility] CHEMISTRY Bili Total 0.2 0.2 - 1.3 05/11/2013 Normal [facility] CHEMISTRY ALANINE AMINOTRANSFERASE 19 0 - 65 05/11/2013 Normal [facility] CHEMISTRY Calcium Lvl 9.2 8.5 - 10.5 05/11/2013 Normal [facility] CHEMISTRY CO2 24 24 - 32 05/11/2013 Normal [facility] CHEMISTRY Albumin Lvl 4.0 3.5 - 5.0 05/11/2013 Normal [facility] CHEMISTRY Total Protein 8.5 6.4 - 8.4 05/11/2013 [facility] CHEMISTRY Alk Phos 119 80 - 406 05/11/2013 Normal [facility] CHEMISTRY eGFR See Comment 05/11/2013 <sup>1</sup>Result Comment: No height is recorded for this patient; estimated GFR cannot be calculated. [facility] CHEMISTRY AGAP 14.5 10.0 - 20.0 05/11/2013 Normal [facility] CHEMISTRY B/C Ratio 16 6 - 25 05/11/2013 Normal [facility] CHEMISTRY Globulin 4.5 2.0 - 4.0 05/11/2013 [facility] CHEMISTRY A/G Ratio 0.9 0.7 - 1.6 05/11/2013 Normal [facility] HEMATOLOGY Hgb 12.1 12.0 - 16.0 05/11/2013 Normal [facility] HEMATOLOGY RDW 14.5 11.5 - 14.5 05/11/2013 Normal [facility] HEMATOLOGY Platelet 195 133 - 450 05/11/2013 Normal [facility] HEMATOLOGY MCHC 33.7 32.0 - 36.0 05/11/2013 Normal [facility] HEMATOLOGY MCV 84.7 81.0 - 99.0 05/11/2013 Normal [facility] HEMATOLOGY Hct 35.9 36.0 - 48.0 05/11/2013 LOW [facility] HEMATOLOGY WBC X 10x3 5.9 3.7 - 10.4 05/11/2013 Normal [facility] HEMATOLOGY RBC X 10x6 4.24 4.20 - 5.40 05/11/2013 Normal [facility] HEMATOLOGY MCH 28.5 27.0 - 31.0 05/11/2013 Normal [facility] HEMATOLOGY MPV 8.7 7.4 - 10.4 05/11/2013 Normal [facility] HEMATOLOGY Basophils # 0.0 0.0 - 0.2 05/11/2013 Normal [facility] HEMATOLOGY Eosinophils # 0.1 0.0 - 0.5 05/11/2013 Normal [facility] HEMATOLOGY Monocytes # 0.3 0.0 - 0.8 05/11/2013 Normal [facility] HEMATOLOGY Segs-Bands # 3.1 1.5 - 8.1 05/11/2013 Normal [facility] HEMATOLOGY Lymphocytes # 2.3 1.0 - 5.5 05/11/2013 Normal [facility] HEMATOLOGY Monocytes 5.6 2.0 - 12.0 05/11/2013 Normal [facility] HEMATOLOGY Lymphocytes 39.2 20.0 - 40.0 05/11/2013 Normal [facility] HEMATOLOGY Eosinophils 2.0 0.0 - 4.0 05/11/2013 Normal [facility] HEMATOLOGY Basophils 0.5 0.0 - 1.0 05/11/2013 Normal [facility] HEMATOLOGY Segs 52.7 34.0 - 64.0 05/11/2013 Normal [facility] URINALYSIS UA pH 6.0 5.0 - 8.0 05/11/2013 Normal [facility] URINALYSIS UA Spec Grav 1.033 <=1.030 05/11/2013 [facility] URINALYSIS UA Turbidity Slight *ABN* (05/11/2013 00:15:00) Clear 05/11/2013 ABN [facility] URINALYSIS UA Glucose Negative mg/dL Negative 05/11/2013 [facility] URINALYSIS UA Protein Negative mg/dL Negative 05/11/2013 Normal [facility] URINALYSIS UA Color Yellow *NA* (05/11/2013 00:15:00) Yellow 05/11/2013 [facility] URINALYSIS UA Urobilinogen <=1.0 mg/dL 0.1 - 1.0 05/11/2013 [facility] URINALYSIS UA CaOx Nanci Occasional /HPF None Seen 05/11/2013 [facility] URINALYSIS UA Bili Negative *NA* (05/11/2013 00:15:00) Negative 05/11/2013 [facility] URINALYSIS UA Ketones Negative mg/dL Negative 05/11/2013 [facility] URINALYSIS UA Nitrite Negative (05/11/2013 00:15:00) Negative 05/11/2013 Normal [facility] URINALYSIS UA Blood Negative (05/11/2013 00:15:00) Negative 05/11/2013 Normal [facility] URINALYSIS UA Leuk Est Negative (05/11/2013 00:15:00) Negative 05/11/2013 Normal [facility] URINALYSIS UA Mucus Moderate /LPF None Seen 05/11/2013 ABN [facility] URINALYSIS UA RBC 1 0 - 2 05/11/2013 Normal [facility] URINALYSIS UA WBC 2 0 - 5 05/11/2013 Normal [facility] URINALYSIS UA Sq Epi Few /LPF Few 05/11/2013 [facility] Pathology Reports No Data Provided for This Section Diagnostic Reports Report Value Date Source Abdomen RUQ US PROCEDURE: Abdomen RUQ US [...] IMPRESSION: 1. Contracted gallbladder. SL: 14 05/11/2013 [facility] Consultation Notes No Data Provided for This Section Discharge Summaries No Data Provided for This Section History and Physicals No Data Provided for This Section Vital Signs Vital Sign Value Date Comments Source Respitory Rate 16 03/17/2016 [facility] Heart Rate 90 03/17/2016 [facility] Temperature Oral (F) 98.5 F 03/17/2016 [facility] Systolic (mm Hg) 125 03/17/2016 [facility] Diastolic (mm Hg) 85 03/17/2016 [facility] Heart Rate 73 03/17/2016 [facility] Respitory Rate 16 03/17/2016 [facility] Systolic (mm Hg) 114 03/17/2016 [facility] Diastolic (mm Hg) 81 03/17/2016 [facility] Temperature Oral (F) 98.6 F 03/17/2016 [facility] Systolic (mm Hg) 118 03/17/2016 [facility] Diastolic (mm Hg) 83 03/17/2016 [facility] Temperature Oral (F) 98.5 F 03/17/2016 [facility] Respitory Rate 16 03/17/2016 [facility] Heart Rate 85 03/17/2016 [facility] BMI Calculated 45.44 03/15/2016 [facility] Weight 109.091 03/15/2016 [facility] Height 154.94 cm 03/15/2016 [facility] Weight 107.727 03/08/2016 [facility] Temperature Oral (F) 98.4 F 03/08/2016 [facility] Respitory Rate 20 03/08/2016 [facility] Heart Rate 81 03/08/2016 [facility] Systolic (mm Hg) 137 03/08/2016 [facility] Diastolic (mm Hg) 73 03/08/2016 [facility] BMI Calculated 44.87 03/08/2016 [facility] Height 154.94 cm 03/08/2016 [facility] Weight 107.727 03/08/2016 [facility] BMI Calculated 44.87 03/08/2016 [facility] Height 154.94 cm 03/08/2016 [facility] Systolic [...] 154.94 cm 02/14/2016 [facility] Weight 104.091 02/14/2016 [facility] Temperature Oral (F) 98.1 F 12/26/2015 [facility] Heart Rate 100 12/26/2015 [facility] Respitory Rate 20 12/26/2015 [facility] Systolic (mm Hg) 128 12/26/2015 [facility] Diastolic (mm Hg) 73 12/26/2015 [facility] BMI Calculated 40.71 12/26/2015 [facility] Weight 97.727 12/26/2015 [facility] Temperature Oral (F) 98.1 F 12/26/2015 [facility] Height 154.94 cm 12/26/2015 [facility] Systolic (mm Hg) 126 12/26/2015 [facility] Diastolic (mm Hg) 82 12/26/2015 [facility] Respitory Rate 18 12/26/2015 [facility] Heart Rate 117 12/26/2015 [facility] Temperature Oral (F) 98.6 F 12/18/2015 [facility] Respitory Rate 18 12/18/2015 [facility] Heart Rate 85 12/18/2015 [facility] Systolic (mm Hg) 117 12/18/2015 [facility] Diastolic (mm Hg) 70 12/18/2015 [facility] Weight 97.727 12/18/2015 [facility] Systolic (mm Hg) 125 12/18/2015 [facility] Diastolic (mm Hg) 69 12/18/2015 [facility] Heart Rate 89 12/18/2015 [facility] BMI Calculated 40.71 12/18/2015 [facility] Height 154.94 cm 12/18/2015 [facility] Respitory Rate 18 12/18/2015 [facility] Temperature Oral (F) 99.1 F 12/18/2015 [facility] Heart Rate 68 05/11/2013 [facility] Respitory Rate 16 05/11/2013 [facility] Systolic (mm Hg) 104 05/11/2013 [facility] Diastolic (mm Hg) 72 05/11/2013 [facility] Temperature Oral (F) 97.0 F 05/11/2013 [facility] Heart Rate 71 05/11/2013 [facility] Systolic (mm Hg) 114 05/11/2013 [facility] Respitory Rate 16 05/11/2013 [facility] Diastolic (mm Hg) 68 05/11/2013 [facility] Systolic (mm Hg) 118 05/11/2013 [facility] Respitory Rate 16 05/11/2013 [facility] Diastolic (mm Hg) 72 05/11/2013 [facility] Heart Rate 72 05/11/2013 [facility] Temperature Oral (F) 97.4 F 05/11/2013 [facility] Temperature Oral (F) 97.8 F 05/11/2013 [facility] Weight 90.909 05/11/2013 [facility] Encounters Location Location Details Encounter Type Encounter Number Reason For Visit Attending Provider ADM Date DC Date Status Source [facility] Emergency [id number] [facility]ENC[facility] QURESHI 05/10/2013 05/11/2013 Discharged [facility] Emergency [id number] Kishan Pires 12/18/2015 12/18/2015 [facility] Emergency [id number] Tre Taylor 12/26/2015 12/26/2015 [facility] Emergency [id number] Pat Zimmerman 02/14/2016 02/14/2016 [facility] Emergency [id number] Pat Zimmerman 03/08/2016 03/08/2016 [facility] Inpatient [id number] Rodriguez Patel 03/15/2016 03/17/2016 [facility] Procedures Procedure Code Date Perfomer Comments Source Stent placement<sup>1</sup> [id number] 04/29/2012 kidney stent placed for stones [facility] Lithotripsy [id number] [facility] Assessment and Plan Assessment and Plan Date Source Extracted from:Title: OB Inpatient Progress Note * Author: Rodriguez Patel MD Date: 03/16/16 Impression and Plan POD DAy #1 Platelets at 90 03/17/2016 [facility] Plan of Care No Data Provided for This Section Social History Social History Date Source Social History TypeResponse Substance Abuse 1 Alcohol 2 Smoking Status Never smoker; Exposure to Tobacco Smoke None; Cigarette Smoking Last 365 Days No; Reg Smoking Cessation Counseling No [id number] 02/14/2016 [facility] Family History No Data Provided for This Section Advance Directives No Data Provided for This Section Functional Status No Data Provided for This Section
[2018-11-30] MEDS ORDERED: ONDANSETRON HCL INJ 2MG/ML 2ML 2 MG/ML VIAL IV STA (23:46)
[2018-12-01] MEDS ORDERED: SODIUM CHLORIDE 0.9% 1000ML 1,000 ML IV ONE
[2018-12-01] MEDS ORDERED: DICYCLOMINE HCL 20 MG/2 ML VIAL IM ONE
[2018-12-01 00:40] LABS: PREGNANCY TEST, URINE NEGATIVE (NEGATIVE)
[2018-12-01 00:45] LABS: BASOPHILS % 0.4 % (0.0-1.0); EOSINOPHILS # (AUTO) 0.2 (0.0-0.4); EOSINOPHILS % 3.9 % (0.0-6.0); HEMATOCRIT 39.7 % (34.2-44.1); LYMPHOCYTES # (AUTO) 1.6 (1.0-3.2); MEAN CORPUSCULAR HEMOGLOBIN 29.3 pg (28-32); MEAN CORPUSCULAR HGB CONC 32.7 g/dL (31-35); MEAN CORPUSCULAR VOLUME 89.4 fL (81-99); MONOCYTES # (AUTO) 0.4 (0.2-0.8); MONOCYTES % 6.9 % (4.4-11.3); NEUTROPHILS # (AUTO) 3.4 (2.1-6.9); NEUTROPHILS % 60.6 % (38.7-80.0); PLATELET COUNT 209 x10e3/uL (140-360); RED BLOOD COUNT 4.44 x10e6/uL (3.6-5.1); RED CELL DISTRIBUTION WIDTH 12.6 % (11.7-14.4)
[2018-12-01 00:52] LABS: ALANINE AMINOTRANSFERASE 42 IU/L (0-55); ALBUMIN 3.6 g/dL (3.5-5.0); ALBUMIN/GLOBULIN RATIO 0.9 (0.8-2.0); ALKALINE PHOSPHATASE 120 IU/L (40-150); ANION GAP 14.8 mmol/L (8-16); BLOOD UREA NITROGEN 11 mg/dL (7-26); BUN/CREATININE RATIO 14 (6-25); CALCIUM 9.4 mg/dL (8.4-10.2); CARBON DIOXIDE 21 mmol/L (22-29); CHLORIDE 106 mmol/L (98-107); CREATININE, SERUM 0.77 mg/dL (0.57-1.11); EST GLOMERULAR FILTRATION RATE > 60 ML/MIN (60-); GLUCOSE 90 mg/dL (74-118); POTASSIUM 3.8 mmol/L (3.5-5.1); SODIUM 138 mmol/L (136-145)
[2018-12-01 00:53] LABS: AMYLASE 35 U/L (25-125); LIPASE 14 U/L (8-78)
[2018-12-01 01:09] LABS: BACTERIA,URINE MODERATE /HPF
[2018-12-01 01:10] LABS: EPITHELIAL CELLS,URINE FEW /LPF
[2018-12-01 01:12] LABS: BILIRUBIN,URINE NEGATIVE (NEGATIVE); CLARITY,URINE CLEAR (CLEAR); COLOR,URINE YELLOW (YELLOW); KETONES,URINE NEGATIVE (NEGATIVE); LEUKOCYTE ESTERASE ,URINE NEGATIVE (NEGATIVE); NITRITE,URINE NEGATIVE (NEGATIVE); PROTEIN,URINE DIPSTICK NEGATIVE (NEGATIVE); URINE UROBILINOGEN 0.2 mg/dL (0.2 - 1)
--- NOTE | 2018-12-01 01:59 | Diagnostic Imaging Report ---
EXAM: CT Abdomen and Pelvis WITHOUT contrast INDICATION: Left lower quadrant pain, diarrhea, cramping, nausea, suprapubic pain, abdominal pain COMPARISON: None. TECHNIQUE: Abdomen and pelvis were scanned utilizing a multidetector helical scanner from the lung base to the pubic symphysis without administration of IV contrast. Absence of intravenous contrast decreases sensitivity for detection of focal lesions and vascular pathology. Coronal and sagittal reformations were obtained. Routine protocol was performed. IV CONTRAST: None ORAL CONTRAST: Gastroview COMPLICATIONS: None RADIATION DOSE: Total DLP: 825 mGy*cm Estimated effective dose: (DLP x 0.015 x size factor) mSv CTDIvol has been reviewed. It is below the limits set by the Radiation Protocol Committee (RPC). Dose modulation, iterative reconstruction, and/or weight based adjustment of the mA/kV was utilized to reduce the radiation dose to as low as reasonably achievable. FINDINGS: LINES and TUBES: None. LOWER THORAX: Unremarkable HEPATOBILIARY: No focal hepatic lesions. No biliary ductal dilation. GALLBLADDER: No radio-opaque stones or sludge. No wall thickening. SPLEEN: No splenomegaly. PANCREAS: No focal masses or ductal dilatation. ADRENALS: No adrenal nodules KIDNEYS/URETERS: No hydronephrosis. No cystic or solid mass lesions. No stones. GI TRACT: No abnormal distention, wall thickening, or evidence of bowel obstruction. Appendix is normal. PELVIC ORGANS/BLADDER: Unremarkable. LYMPH NODES: Slightly prominent mesenteric lymph nodes, most notably in the ileocolic lymph nodes. VESSELS: Unremarkable. PERITONEUM / RETROPERITONEUM: No free air or fluid. BONES: Unremarkable. SOFT TISSUES: There is a fat containing para-umbilical hernia without associated inflammatory changes. IMPRESSION: Slightly prominent mesenteric lymph nodes, most notably in the ileocolic lymph nodes, are nonspecific for infection or inflammation, may be due to mesenteric adenitis. Signed by: Claus Hernandez DO on 12/01/2018 1:55 AM
[2018-12-01 03:36] VITALS: BP 121/63
== END 2018-12-01 03:46 | disposition home or self-care (01) ==
LOC: ER 22:57
DX: R10.84 Generalized abdominal pain (principal); R11.2 Nausea with vomiting, unspecified; R19.7 Diarrhea, unspecified; I88.0 Nonspecific mesenteric lymphadenitis; N30.91 Cystitis, unspecified with hematuria
CPT/HCPCS: 36415; 74176; 80053; 81001; 81025; 82150; 83690; 85025; 99284; J0500; J2405; J7030

== ENCOUNTER 2020-12-09 05:18 | Emergency (ER) | payer BC ==
[~2020-12-09] VITALS: Ht 154.9 cm; Wt 99.8 kg
[2020-12-09 06:43] LABS: CLARITY,URINE CLOUDY (CLEAR); COLOR,URINE YELLOW (YELLOW); KETONES,URINE NEGATIVE (NEGATIVE); LEUKOCYTE ESTERASE ,URINE TRACE (NEGATIVE); NITRITE,URINE NEGATIVE (NEGATIVE); PROTEIN,URINE DIPSTICK 2+ (NEGATIVE); URINE UROBILINOGEN 0.2 mg/dL (0.2 - 1)
[2020-12-09 06:53] LABS: BACTERIA,URINE RARE /HPF; EPITHELIAL CELLS,URINE RARE /LPF; WBC,URINE (MAN) 21-50 /HPF (0-5)
[2020-12-09] MEDS ORDERED: CEPHALEXIN500 MG PO (07:02)
== END 2020-12-09 07:43 | disposition home or self-care (01) ==
LOC: ER 06:23
DX: N39.0 Urinary tract infection, site not specified (principal); Z87.442 Personal history of urinary calculi
CPT/HCPCS: 81001; 81025; 87086; 87186; 99283

== ENCOUNTER 2023-01-27 09:19 | Emergency (ER) | payer OTHER, MEDICARE ==
[~2023-01-27] VITALS: Ht 154.9 cm; Wt 99.8 kg
[~2023-01-27 09:19] MED LIST changes: +CEPHALEXIN500 MG PO
[2023-01-27 09:24] VITALS: O2SAT 100
[2023-01-27] MEDS ORDERED: ULTRAM 50MG50 MG PO (09:37)
== END 2023-01-27 09:42 | disposition home or self-care (01) ==
LOC: ER 09:27
DX: R10.30 Lower abdominal pain, unspecified (principal); M62.08 Separation of muscle (nontraumatic), other site
CPT/HCPCS: 99283